=== PATIENT | female | born 1940 | race Caucasian/White ===

== ENCOUNTER 2022-05-30 08:54 | Inpatient (IN) | payer MEDICARE ==
[~2022-05-30] VITALS: Ht 157.5 cm; Wt 54.0 kg
--- NOTE | 2022-05-30 09:24 | NUR ---
Dr Jacques at the bedside for MSE.
[2022-05-30] MEDS ORDERED: MORPHINE SULFATE 4 MG/1 ML DISP.SYRIN IM ONE (09:30)
[2022-05-30] MEDS ORDERED: MORPHINE SULFATE 4 MG/1 ML DISP.SYRIN ONE (09:38)
[2022-05-30 10:59] LABS: HEMATOCRIT 31.9 % (31.2-41.9); MEAN CORPUSCULAR HEMOGLOBIN 32.4 uug (24.7-32.8); MEAN CORPUSCULAR VOLUME 93.5 fL (75.5-95.3); PLATELET COUNT (AUTO) 231 K/uL (179-408)
--- NOTE | 2022-05-30 11:32 | NUR ---
Pt states pain relief w/ Morphine, c/o pain w/ movement. Pt's sitting by bed.
[2022-05-30] MEDS ORDERED: MELATONIN (12:05)
[2022-05-30] MEDS ORDERED: PREDNISOLONE (12:05)
[2022-05-30] MEDS ORDERED: SIMVASTATIN (12:05)
[2022-05-30] MEDS ORDERED: COQ-10 (12:05)
[2022-05-30] MEDS ORDERED: VITAMIN B12 (12:05)
[2022-05-30] MEDS ORDERED: JARDIANCE (12:05)
[2022-05-30] MEDS ORDERED: ALPHAGAN (12:05)
[2022-05-30] MEDS ORDERED: CARTIA (12:05)
[2022-05-30] MEDS ORDERED: ENTACAPONE (12:05)
[2022-05-30] MEDS ORDERED: [UNRECOGNIZED DRUG - OTHER] (12:05)
[2022-05-30] MEDS ORDERED: OLME5TAB3 (12:05)
[2022-05-30] MEDS ORDERED: LEXAPRO (12:05)
[2022-05-30] MEDS ORDERED: XARELTO (12:05)
[2022-05-30] MEDS ORDERED: AREDS (12:05)
[2022-05-30] MEDS ORDERED: POTASSIUM CHLORIDE (12:05)
[2022-05-30] MEDS ORDERED: FURO20TA90 (12:05)
[2022-05-30] MEDS ORDERED: BUPROPION (12:05)
[2022-05-30] MEDS ORDERED: OMEPRAZOLE (12:05)
[2022-05-30] MEDS ORDERED: LINZESS (12:05)
[2022-05-30] MEDS ORDERED: PROLENSA (12:05)
--- NOTE | 2022-05-30 12:10 | NUR ---
Paged Dr Landry for admission.
--- NOTE | 2022-05-30 12:48 | NUR ---
Dr Jacques spoke to Dr Landry for M/S admit.
--- NOTE | 2022-05-30 15:00 | NUR ---
ADMITTED FROM HOME VIA ER AN 81 YO FEMALE WITH ADM DX SP FALL, ALERT AND VERBALLY RESPONSIVE BUT FORGETFUL. AT BEDSIDE. ROUTINE ADM ASSESSMENT DONE. NOTED LIMITED FLEXION RIGHT LE, TENDER TO TOUCH WITH BRUISING. ICE PACK APPLIED. GOOD PEDAL PULSES AND GOOD CAPILLARY REFILL. CONTINUE MS STATUS
--- NOTE | 2022-05-30 15:07 | NUR ---
Transfer pt to M/S unit via [facility].
[2022-05-30 16:16] VITALS: BP 131/65
[2022-05-30] MEDS ORDERED: [UNRECOGNIZED DRUG - CODE] PO (16:17)
[2022-05-30] MEDS ORDERED: POTA10CA43 PO (16:17)
[2022-05-30] MEDS ORDERED: OMEP20CA15 PO (16:18)
[2022-05-30] MEDS ORDERED: EMPA25TA PO (16:18)
[2022-05-30] MEDS ORDERED: SIMV-46 PO (16:18)
[2022-05-30] MEDS ORDERED: DILT120C51 PO (16:18)
[2022-05-30] MEDS ORDERED: RIVA20TA PO (16:18)
[2022-05-30] MEDS ORDERED: BRIM5DRO3 EACHEYE (16:18)
[2022-05-30] MEDS ORDERED: BROM3DRO RIGHTEYE (16:18)
[2022-05-30] MEDS ORDERED: OLME20TA13 PO (16:18)
[2022-05-30] MEDS ORDERED: PRED5DRO16 RIGHTEYE (16:18)
[2022-05-30] MEDS ORDERED: BUPR150T10 PO (16:18)
[2022-05-30] MEDS ORDERED: FURO-152 PO (16:18)
[2022-05-30] MEDS ORDERED: CYAN-51 PO (16:18)
[2022-05-30] MEDS ORDERED: ESCI20TA PO (16:18)
[2022-05-30] MEDS ORDERED: LINA145C PO (16:18)
[2022-05-30] MEDS ORDERED: MELA5TAB PO (16:20)
[2022-05-30] MEDS ORDERED: Medication Not On Formulary EA (Linaclotide (Linzess) 145 MCG) PO PRN (17:45)
[2022-05-30] MEDS ORDERED: BRIMONIDINE-P 0.1% OPHTH DROP 5 ML DROPS EACHEYE SCH (18:00)
[2022-05-30] MEDS ORDERED: ONDANSETRON 4 MG/2 ML VIAL IV PRN (18:00)
[2022-05-30] MEDS ORDERED: MAGNESIUM HYDROXIDE 30 ML LIQUID UDC PO PRN (18:00)
[2022-05-30] MEDS ORDERED: LINZESS 145 MCG PO PRN (18:15)
[2022-05-30] MEDS ORDERED: [UNRECOGNIZED DRUG - OTHER] PO PRN (18:15)
[2022-05-30] MEDS: POTASSIUM CHLORIDE 8 MEQ TAB.PRT.SR PO SCH (18:16)
[2022-05-30] MEDS: FUROSEMIDE 20 MG TABLET PO SCH (18:16)
[2022-05-30] MEDS: DILTIAZEM HCL CD 120 MG CAP.SR.24H PO SCH (18:16)
[2022-05-30] MEDS: MORPHINE SULFATE 2 MG/1 ML DISP.SYRIN IV PRN ×2 (18:16→22:33)
[2022-05-30] MEDS: BRIMONIDINE 0.2% OPHT DROP 10 ML BOTTLE EACHEYE SCH (18:17)
--- NOTE | 2022-05-30 18:30 | NUR ---
PATIENT HR 150-155, C/O PAIN RIGHT THIGH 03/06. MORPHINE PRN AND ROUTINE CARDIZEM GIVEN. PATIENT DENIES CHEST PAIN OR SOB. DR WRIGHT NOTIFIED AWAITING CALL BACK
[2022-05-30 20:00] VITALS: BP 119/75
[2022-05-30] MEDS: AMIODARONE HCL IV 450 MG in IV DEXTROSE 5% 250 ML IV PRN (20:44)
[2022-05-30] MEDS ORDERED: [UNRECOGNIZED DRUG - OTHER] PO SCH (21:00)
[2022-05-30] MEDS ORDERED: CARBIDOPA PO SCH (21:00)
[2022-05-30] MEDS ORDERED: LEVODOPA PO SCH (21:00)
[2022-05-30] MEDS ORDERED: Medication Not On Formulary EA (Melatonin 5 MG) PO SCH (21:00)
[2022-05-30] MEDS ORDERED: ENTACAPONE PO SCH (21:00)
[2022-05-30 22:00] VITALS: BP 121/109
[2022-05-30] MEDS: SIMVASTATIN 20 MG TABLET PO SCH (22:04)
[2022-05-30] MEDS: DOCUSATE SODIUM 100 MG CAPSULE PO SCH (22:05)
[2022-05-30] MEDS: MELATONIN 3 MG TABLET PO SCH (22:05)
[2022-05-31] VITALS (7 sets, daily range): BP systolic 110–135; BP diastolic 46–67
[2022-05-31] MEDS: MORPHINE SULFATE 2 MG/1 ML DISP.SYRIN IV PRN ×2 (02:55→22:20)
--- NOTE | 2022-05-31 04:40 | NUR ---
Patient rec'd at 1900 on MAEGAN status. Chronic Specialist at bedside. Heart rate 150's sustained. Order placed by MD for Amiodorone DRip, No bolus ordered. Pt lying in bed family at bedside Pt oriented to person does not where she is. Reoriented to place and time. Assessment complete Amiodorone drip obtained from Pharmacy and started.
--- NOTE | 2022-05-31 04:47 | NUR ---
Stat CT of right hip and thigh ordered due to hematoma from fall at home. See assessment. Pt taken foe CT and returned to floor. Amiodorone drip commenced. Heart rate 130's to 150's. Drip running at 1mg/hr for [address] results posted Call placed to DR Cheng.who ispoke with the family via telephome re results. Family left for the night.
[2022-05-31] MEDS: AMIODARONE HCL IV 450 MG in IV DEXTROSE 5% 250 ML IV PRN (05:29)
[2022-05-31] MEDS: PANTOPRAZOLE SODIUM 40 MG TABLET.DR PO SCH (06:52)
[2022-05-31 07:41] LABS: HEMATOCRIT 26.3 % (31.2-41.9); MEAN CORPUSCULAR HEMOGLOBIN 32.8 uug (24.7-32.8); MEAN CORPUSCULAR VOLUME 94.9 fL (75.5-95.3); PLATELET COUNT (AUTO) 202 K/uL (179-408)
[2022-05-31 07:45] LABS: BILIRUBIN,TOTAL 0.5 mg/dL (0.2-1.0); CREATININE 1.2 mg/dL (0.6-1.3); MAGNESIUM 2.3 mg/dL (1.8-2.4); PHOSPHOROUS 5.3 mg/dL (2.5-4.9); POTASSIUM 3.9 mmol/L (3.5-5.1); TOTAL PROTEIN, SERUM 5.3 g/dL (6.4-8.2)
--- NOTE | 2022-05-31 07:52 | NUR ---
Awake, alert, oriented to name, pleasant, on moderate high back rest. Denies pain. Amiodarone drip infusing at 0.5 mg at 16.6 ml/hr. Tele SR 75. Room air 95%
[2022-05-31] MEDS ORDERED: Medication Not On Formulary EA (Escitalopram Oxalate (Lexapro) 20 MG) PO SCH (09:00)
[2022-05-31] MEDS ORDERED: DILTIAZEM HCL CD 120 MG CAP.SR.24H PO SCH (09:00)
[2022-05-31] MEDS ORDERED: Medication Not On Formulary EA (Empagliflozin (Jardiance) 25 MG) PO SCH (09:00)
[2022-05-31] MEDS: BRIMONIDINE 0.2% OPHT DROP 10 ML BOTTLE EACHEYE SCH ×2 (09:10→17:17)
[2022-05-31] MEDS: DILTIAZEM HCL CD 120 MG CAP.SR.24H PO SCH (09:10)
[2022-05-31] MEDS: buPROPion SR 150 MG TABLET.SA PO SCH (09:11)
[2022-05-31] MEDS: FUROSEMIDE 20 MG TABLET PO SCH ×3 (09:11→17:17)
[2022-05-31] MEDS: POTASSIUM CHLORIDE 8 MEQ TAB.PRT.SR PO SCH ×2 (09:11→17:00)
[2022-05-31] MEDS: ESCITALOPRAM OXALATE 10 MG TABLET PO SCH (09:11)
[2022-05-31] MEDS: CYANOCOBALAMIN 1,000 MCG TABLET PO SCH (09:11)
[2022-05-31] MEDS: prednisoLONE ACET 1% OPHT DROP 5 ML BOTTLE RIGHTEYE SCH (09:12)
--- NOTE | 2022-05-31 10:44 | NUR ---
WOUND CARE CONSULT: PT HAVING PROCEDURE AT THIS TIME. REVIEWED CHART, NURSING DOCUMENTATION AND PHOTO WHICH INDICATES RT ELBOW SKIN TEAR, PRESENT ON ADMISSION. RECOMMENDATIONS MADE FOR SKIN PROTECTION AND WOUND CARE. DISCUSSED WITH NURSING STAFF. CURRENT OLINDA SCORE IS 17. MD IN AGREEMENT WITH PLAN OF CARE. Addendum: 05/31/22 at 1106 by MAIDA BHAT RN PT SEEN FOR SKIN ASSESSMENT AND NOTED TO HAVE FIRM AREA OF DISCOLORATION TO RT THIGH AND FULL THICKNESS SKIN TEAR TO RT ELBOW, PRESENT ON ADMISSION. DR STORM FELDMAN CALLED FOR SURGICAL CONSULT. DISCUSSED WITH NURSING STAFF. MD IN AGREEMENT WITH PLAN OF CARE.
--- NOTE | 2022-05-31 11:30 | NUR ---
PT eval done, assisted out of bed to the bathroom,unsteady x 2 assist. Had BM.
[2022-05-31] MEDS ORDERED: REMEDY ESSENTIAL ZINC PASTE 113 GM TOP PRN (12:00)
[2022-05-31] MEDS: ACETAMINOPHEN 325 MG TABLET PO PRN (13:23)
--- NOTE | 2022-05-31 13:23 | NUR ---
Reports of neck pain, requested for Tylenol po given
[2022-05-31 15:00] LABS: THYROID STIMULATING HORMONE 2.972 mIU/mL (0.358-3.740)
--- NOTE | 2022-05-31 15:30 | NUR ---
Customer Acquisition Specialist seen patient, informed of Tele SR, Amiodarone drip discontinued. Amiodarone po started.
[2022-05-31] MEDS: AMIODARONE HCL 200 MG TABLET PO SCH (15:31)
--- NOTE | 2022-05-31 18:02 | NUR ---
Family at bedside. Encouraged po intake. Refused Lasix/K po.
[2022-05-31] MEDS ORDERED: HOME MED MISCELLANEOUS XX SCH (19:30)
[2022-05-31] MEDS ORDERED: FLUTICASONE/SALMETEROL 100/50 1 INH DISK.W.DEV INH SCH (21:00)
[2022-05-31] MEDS: CARBIDOPA PO SCH (21:00)
[2022-05-31] MEDS: ENTACAPONE PO SCH (21:00)
[2022-05-31] MEDS: MELATONIN 3 MG TABLET PO SCH (21:00)
[2022-05-31] MEDS: LEVODOPA PO SCH (21:00)
[2022-05-31] MEDS: FLUTICASONE/VILANTEROL 1 EACH BLST.W.DEV INH SCH (21:00)
[2022-05-31] MEDS: DOCUSATE SODIUM 100 MG CAPSULE PO SCH (21:00)
[2022-05-31] MEDS: SIMVASTATIN 20 MG TABLET PO SCH (21:00)
[2022-05-31] MEDS: [UNRECOGNIZED DRUG - OTHER] PO SCH (21:00)
[2022-05-31] MEDS: ALBUTEROL SULFATE 1.25 MG/3 ML NEBU NEB PRN (22:29)
[2022-06-01] VITALS (11 sets, daily range): BP systolic 91–151; BP diastolic 38–69
[2022-06-01] MEDS: TEMAZEPAM 15 MG CAPSULE PO PRN ×2 (02:22→22:33)
[2022-06-01] MEDS: MORPHINE SULFATE 2 MG/1 ML DISP.SYRIN IV PRN ×2 (03:18→07:38)
--- NOTE | 2022-06-01 06:00 | NUR ---
[id number]--RECEIVED PT WITH STABLE VS. PT HAS BEEN CONFUSED THROUGHOUT THE NIGHT. PT HAS BEEN AFEBRILE. IV I/P VIA LEFT ARM. PT HAS BEEN A/OX3 WHEN FAMILY WAS AT BESIDE(PT'S AND DAUGHTERS)BUT LATER PT BECAME MORE CONFUSED-ABOUT LOCATION AND EVENTS BUT ANSWERS TO HER NAME AND FOLLOWS SIMPLE COMMDS. PT HAS BEEN INCONT. PT VOIDING WELL. AM CARE GIVEN. PT C/O GEN.PAIN EARLIER AND REQUESTED MORPHINE-2MG GIVEN/IVP. PT STATES RELIEF AFTER MED. PT ALSO MED LATER IN SHIFT FOR S/S OF PAIN AT 0300. PT SLEEPING OFF AND ON AFTER MED WAS GIVEN BUT PT HAS BEEN AGITATED AT TIMES. BOAR SANON CONTACTED REGARDING PT'S HR INCREASING FROM 120'S-140'S. GEN. COND. HAS BEEN STABLE BUT GUARDED. PT ENDORSED TO SHYAM DRAPER RN
[2022-06-01] MEDS: PANTOPRAZOLE SODIUM 40 MG TABLET.DR PO SCH (06:28)
[2022-06-01] MEDS: AMIODARONE HCL 200 MG TABLET PO SCH (06:28)
[2022-06-01 07:19] LABS: HEMATOCRIT 24.4 % (31.2-41.9); MEAN CORPUSCULAR HEMOGLOBIN 32.5 uug (24.7-32.8); MEAN CORPUSCULAR VOLUME 93.7 fL (75.5-95.3); PLATELET COUNT (AUTO) 204 K/uL (179-408)
--- NOTE | 2022-06-01 07:22 | NUR ---
patient received laying in bed, very restless, awake, oriented to self, currently afib.
[2022-06-01] MEDS: DILTIAZEM HCL CD 120 MG CAP.SR.24H PO SCH (07:41)
[2022-06-01 07:58] LABS: MAGNESIUM 2.4 mg/dL (1.8-2.4); PHOSPHOROUS 3.7 mg/dL (2.5-4.9); POTASSIUM 3.6 mmol/L (3.5-5.1)
--- NOTE | 2022-06-01 07:59 | NUR ---
Dr Stokes is paged regarding patient current condition of being in Afib with rate of 130s, waiting for response.
--- NOTE | 2022-06-01 08:11 | NUR ---
order received for amio bolus and then drip, order noted.
[2022-06-01] MEDS ORDERED: AMIODARONE HCL IV 450 MG in IV DEXTROSE 5% 250 ML IV PRN (08:30)
[2022-06-01] MEDS: LORAZEPAM 2 MG/1 ML VIAL IV PRN (08:41)
--- NOTE | 2022-06-01 08:52 | NUR ---
patient noted with constant severe jerky movements, rapid response was called, patient assessed, called dr chatman, with order to give patient another dose of Ativan.
[2022-06-01] MEDS: [UNRECOGNIZED DRUG - OTHER] PO SCH ×5 (09:00→20:29)
[2022-06-01] MEDS ORDERED: LORAZEPAM 2 MG/1 ML VIAL IV ONE (09:00)
[2022-06-01] MEDS: LEVODOPA PO SCH ×5 (09:00→20:29)
[2022-06-01] MEDS ORDERED: AMIODARONE HCL IV 150 MG in IV DEXTROSE 5% 100 ML IV ONE ×4 (09:00)
[2022-06-01] MEDS: JARDIANCE 25 MG PO SCH (09:00)
[2022-06-01] MEDS: CARBIDOPA PO SCH ×5 (09:00→20:29)
[2022-06-01] MEDS: [UNRECOGNIZED DRUG - OTHER] PO SCH (09:00)
[2022-06-01] MEDS: ESCITALOPRAM OXALATE 10 MG TABLET PO SCH (09:00)
[2022-06-01] MEDS: POTASSIUM CHLORIDE 8 MEQ TAB.PRT.SR PO SCH ×2 (09:00→16:24)
[2022-06-01] MEDS: ENTACAPONE PO SCH ×5 (09:00→20:29)
[2022-06-01] MEDS: CYANOCOBALAMIN 1,000 MCG TABLET PO SCH (09:00)
--- NOTE | 2022-06-01 09:00 | NUR ---
Amiodarone not administered patient systolic blood pressure dropped to low 80s. Dr Stokes made aware.
--- NOTE | 2022-06-01 09:05 | NUR ---
another dose of ativan administered as ordered, continue to monitor for jerking movements, still noted with jerky movements at this time.
[2022-06-01] MEDS: BRIMONIDINE 0.2% OPHT DROP 10 ML BOTTLE EACHEYE SCH ×2 (10:14→16:24)
[2022-06-01] MEDS ORDERED: IV NORMAL SALINE 500 ML BAG IV ONE (10:15)
[2022-06-01] MEDS: FLUTICASONE/VILANTEROL 1 EACH BLST.W.DEV INH SCH (10:15)
[2022-06-01] MEDS: prednisoLONE ACET 1% OPHT DROP 5 ML BOTTLE RIGHTEYE SCH (10:17)
[2022-06-01] MEDS: buPROPion SR 150 MG TABLET.SA PO SCH (10:17)
--- NOTE | 2022-06-01 10:26 | NUR ---
patient systolic blood pressure was dropped to 80s, dr chatman examined patient at bedside, ordered 500ml of bolus x1, administered, current vitals are blood pressure 141/62, pulse 99, respirations are 22, o2 sat at room air 94%, patient is resting in bed.
--- NOTE | 2022-06-01 11:21 | NUR ---
Patient came back from CT, sleeping and resting in bed, no jerky movements noted at this time, family at bedside, talked to dr chatman in person at patient bedside.
[2022-06-01] MEDS: FUROSEMIDE 20 MG TABLET PO SCH ×2 (12:19→16:24)
--- NOTE | 2022-06-01 12:38 | NUR ---
patient converted to sinus rhythm
--- NOTE | 2022-06-01 16:27 | NUR ---
patient was awake for few minutes, able to follow commands, tolerated po medications, no acute distress noted, saturating at 95% at 2 liter of NC.
--- NOTE | 2022-06-01 18:56 | NUR ---
Patient is examined by Manager Foreign Dr Stokes at bedside. patient is intermittently awake, noted with episodes of mild restlessness in bed and goes back to sleep, kept safe, and clean. spoke to family in length, answered appropriate questions at bedside.
[2022-06-01] MEDS ORDERED: IV NORMAL SALINE 250 ML IV PRN (19:00)
[2022-06-01] MEDS: DOCUSATE SODIUM 100 MG CAPSULE PO SCH (20:27)
[2022-06-01] MEDS: MELATONIN 3 MG TABLET PO SCH (20:27)
[2022-06-01] MEDS: SIMVASTATIN 20 MG TABLET PO SCH (20:28)
[2022-06-01] MEDS: METOPROLOL TARTRATE 25 MG TABLET PO SCH (21:00)
[2022-06-02] VITALS (7 sets, daily range): BP systolic 102–132; BP diastolic 45–96
[2022-06-02] MEDS: LORAZEPAM 2 MG/1 ML VIAL IV PRN (02:32)
[2022-06-02] MEDS: TRAMADOL HCL 50 MG TABLET PO PRN (05:11)
[2022-06-02 06:21] LABS: HEMATOCRIT 23.7 % (31.2-41.9); MEAN CORPUSCULAR HEMOGLOBIN 32.7 uug (24.7-32.8); MEAN CORPUSCULAR VOLUME 95.8 fL (75.5-95.3); PLATELET COUNT (AUTO) 200 K/uL (179-408)
[2022-06-02] MEDS: PANTOPRAZOLE SODIUM 40 MG TABLET.DR PO SCH (06:22)
--- NOTE | 2022-06-02 06:52 | NUR ---
Patient monitored throughout the night BP stable Cardiac rhythm sinus /Afib flutter However sinus for greater part of night. Pt also slept for approximately 3 hours after restoril also after administration of Ativan. aTramadol given for pain at 0500. with good effect Pericare mouth care given . Moderate urine output noted
[2022-06-02 07:29] LABS: BILIRUBIN,TOTAL 0.6 mg/dL (0.2-1.0); CREATININE 0.7 mg/dL (0.6-1.3); MAGNESIUM 2.6 mg/dL (1.8-2.4); PHOSPHOROUS 2.9 mg/dL (2.5-4.9); POTASSIUM 3.3 mmol/L (3.5-5.1); TOTAL PROTEIN, SERUM 5.6 g/dL (6.4-8.2)
[2022-06-02] MEDS: ESCITALOPRAM OXALATE 10 MG TABLET PO SCH (08:22)
[2022-06-02] MEDS: CYANOCOBALAMIN 1,000 MCG TABLET PO SCH (08:23)
[2022-06-02] MEDS: buPROPion SR 150 MG TABLET.SA PO SCH (08:23)
[2022-06-02] MEDS: POTASSIUM CHLORIDE 8 MEQ TAB.PRT.SR PO SCH ×2 (08:24→16:36)
[2022-06-02] MEDS: prednisoLONE ACET 1% OPHT DROP 5 ML BOTTLE RIGHTEYE SCH (08:25)
[2022-06-02] MEDS: BRIMONIDINE 0.2% OPHT DROP 10 ML BOTTLE EACHEYE SCH ×2 (08:25→17:37)
[2022-06-02] MEDS: FLUTICASONE/VILANTEROL 1 EACH BLST.W.DEV INH SCH (08:26)
[2022-06-02] MEDS: METOPROLOL TARTRATE 25 MG TABLET PO SCH ×2 (08:26→21:00)
[2022-06-02] MEDS: ACETAMINOPHEN 325 MG TABLET PO PRN (08:26)
[2022-06-02] MEDS: [UNRECOGNIZED DRUG - OTHER] PO SCH ×4 (08:28→21:08)
[2022-06-02] MEDS: CARBIDOPA PO SCH ×4 (08:28→21:08)
[2022-06-02] MEDS: LEVODOPA PO SCH ×4 (08:28→21:08)
[2022-06-02] MEDS: ENTACAPONE PO SCH ×4 (08:28→21:08)
[2022-06-02] MEDS: [UNRECOGNIZED DRUG - OTHER] PO SCH (08:29)
[2022-06-02] MEDS: JARDIANCE 25 MG PO SCH (08:29)
[2022-06-02] MEDS ORDERED: AMIODARONE HCL 200 MG TABLET PO SCH (09:00)
[2022-06-02] MEDS: POTASSIUM CHLORIDE 50 ML IV SCH ×2 (10:01→11:58)
[2022-06-02] MEDS: RIVAROXABAN 15 MG TABLET PO SCH (12:39)
--- NOTE | 2022-06-02 17:00 | NUR ---
Pt. was monitored through out the shift. Wound care provided on right elbow. Family noted at pt. bed side through out the shift. Pt. noted to have productive cough and reported to and received order for Robitussin. Chest X-ray just done.
[2022-06-02] MEDS: MELATONIN 3 MG TABLET PO SCH (21:08)
[2022-06-02] MEDS: DOCUSATE SODIUM 100 MG CAPSULE PO SCH (21:08)
[2022-06-02] MEDS: SIMVASTATIN 20 MG TABLET PO SCH (21:08)
[2022-06-03] VITALS: BP 110/52
[2022-06-03 04:00] VITALS: BP 118/50
[2022-06-03] MEDS: PANTOPRAZOLE SODIUM 40 MG TABLET.DR PO SCH (06:17)
[2022-06-03 06:20] LABS: HEMATOCRIT 23.5 % (31.2-41.9); MEAN CORPUSCULAR HEMOGLOBIN 32.3 uug (24.7-32.8); PLATELET COUNT (AUTO) 241 K/uL (179-408)
[2022-06-03 06:39] LABS: CREATININE 0.7 mg/dL (0.6-1.3); MAGNESIUM 2.5 mg/dL (1.8-2.4); PHOSPHOROUS 3.6 mg/dL (2.5-4.9); POTASSIUM 4.1 mmol/L (3.5-5.1)
--- NOTE | 2022-06-03 06:48 | NUR ---
Pt with slight improvement. Slept for long periods Metoprolol for 2100 not given pt was bradycardic 50's. Aggitated at times only when receiving care. Stable BP pending swallow eval. midline to boone arm patent and intact.
[2022-06-03 07:34] VITALS: BP 127/78
[2022-06-03] MEDS: CYANOCOBALAMIN 1,000 MCG TABLET PO SCH (08:16)
[2022-06-03] MEDS: buPROPion SR 150 MG TABLET.SA PO SCH (08:18)
[2022-06-03] MEDS: POTASSIUM CHLORIDE 8 MEQ TAB.PRT.SR PO SCH ×2 (08:18→16:47)
[2022-06-03] MEDS: BRIMONIDINE 0.2% OPHT DROP 10 ML BOTTLE EACHEYE SCH ×2 (08:19→16:47)
[2022-06-03] MEDS: ESCITALOPRAM OXALATE 10 MG TABLET PO SCH (08:19)
[2022-06-03] MEDS: prednisoLONE ACET 1% OPHT DROP 5 ML BOTTLE RIGHTEYE SCH (08:19)
[2022-06-03] MEDS: LEVODOPA PO SCH ×4 (08:20→21:39)
[2022-06-03] MEDS: [UNRECOGNIZED DRUG - OTHER] PO SCH ×4 (08:20→21:39)
[2022-06-03] MEDS: [UNRECOGNIZED DRUG - OTHER] PO SCH (08:20)
[2022-06-03] MEDS: JARDIANCE 25 MG PO SCH (08:20)
[2022-06-03] MEDS: ENTACAPONE PO SCH ×4 (08:20→21:39)
[2022-06-03] MEDS: CARBIDOPA PO SCH ×4 (08:20→21:39)
[2022-06-03] MEDS: FLUTICASONE/VILANTEROL 1 EACH BLST.W.DEV INH SCH (08:21)
[2022-06-03] MEDS: GUAIFENESIN/DEXTROMETHORPHAN 5 ML UDC PO PRN ×2 (08:31→17:47)
[2022-06-03] MEDS: ACETAMINOPHEN 325 MG TABLET PO PRN (08:32)
[2022-06-03] MEDS ORDERED: PIPERACILLIN SODIUM/TAZOBACTAM 3.375 G in IV DEXTROSE 5% 50 ML IV ONE (09:00)
[2022-06-03] MEDS: METOPROLOL TARTRATE 25 MG TABLET PO SCH (09:02)
[2022-06-03 11:34] VITALS: BP 117/86
[2022-06-03] MEDS: AMIODARONE HCL 200 MG TABLET PO SCH ×2 (11:43→21:39)
[2022-06-03] MEDS ORDERED: PIPERACILLIN SODIUM/TAZOBACTAM 3.375 G in IV DEXTROSE 5% 50 ML IV SCH (14:00)
[2022-06-03 16:00] VITALS: BP 139/56
[2022-06-03] MEDS: PIPERACILLIN SODIUM/TAZOBACTAM 3.375 G in IV DEXTROSE 5% 100 ML IV SCH (16:36)
[2022-06-03 16:59] LABS: *BILIRUBIN,URIN NEGATIVE (NEGATIVE); *BLOOD, URINE NEGATIVE (NEGATIVE); *CLARITY,URINE CLEAR (CLEAR); *COLOR,URINE YELLOW (YELLOW); *KETONES,URINE 1+ (NEGATIVE); *UROBILINOGEN,URINE 0.2 E.U./dl (NORMAL); LEUKOCYTE ESTERASE ,URINE 1+ (NEGATIVE); NITRITE, URINE NEGATIVE (NEGATIVE); PH,URINE 5.5 (5.0-8.0); UGLUCOSE 2+ (NEGATIVE)
[2022-06-03] MEDS: RIVAROXABAN 15 MG TABLET PO SCH (17:05)
--- NOTE | 2022-06-03 17:15 | NUR ---
Noted pt. having Rapid A-Fib at 110 and noted asymptomatic. Nonpharmacological intervention applied by decreasing stimuli and keeping the room quite. Will keep monitoring the resident.
[2022-06-03] MEDS: TRAMADOL HCL 50 MG TABLET PO PRN (17:47)
--- NOTE | 2022-06-03 18:21 | NUR ---
Noted nonpharmacological intervention to be effective and HR to 70.
[2022-06-03 20:00] VITALS: BP 139/56
[2022-06-03 20:56] LABS: BACTERIA,URINE MA /HPF (NONE SEEN); RBC,URINE 0-3 /HPF (0-3); SQUAMOUS EPITHELIAL CELL,UR MANY /HPF (NONE SEEN)
[2022-06-03] MEDS: DOCUSATE SODIUM 100 MG CAPSULE PO SCH (21:38)
[2022-06-03] MEDS: SIMVASTATIN 20 MG TABLET PO SCH (21:38)
[2022-06-03] MEDS: MELATONIN 3 MG TABLET PO SCH (21:38)
[2022-06-04] MEDS: TRAMADOL HCL 50 MG TABLET PO PRN ×2 (00:11→11:43)
[2022-06-04] MEDS: TEMAZEPAM 15 MG CAPSULE PO PRN (00:16)
[2022-06-04] MEDS: PIPERACILLIN SODIUM/TAZOBACTAM 3.375 G in IV DEXTROSE 5% 100 ML IV SCH ×3 (00:22→17:56)
[2022-06-04] MEDS: PIPERACILLIN SODIUM/TAZOBACTAM 3.375 G in IV DEXTROSE 5% 50 ML IV SCH (02:00)
[2022-06-04 05:19] VITALS: BP 129/96
[2022-06-04] MEDS: ACETAMINOPHEN 325 MG TABLET PO PRN (05:46)
[2022-06-04] MEDS: PANTOPRAZOLE SODIUM 40 MG TABLET.DR PO SCH (06:02)
--- NOTE | 2022-06-04 06:15 | NUR ---
Pt improving, Hacky cough noted to be decreasing. Converts to flutter when aggitated. Medicated for pain prn. with good effect. PO encouraged.
--- NOTE | 2022-06-04 06:56 | NUR ---
pt had 3 bowel movement today.
[2022-06-04 07:40] LABS: HEMATOCRIT 24.9 % (31.2-41.9); MEAN CORPUSCULAR HEMOGLOBIN 32.3 uug (24.7-32.8); MEAN CORPUSCULAR VOLUME 96.4 fL (75.5-95.3); PLATELET COUNT (AUTO) 308 K/uL (179-408)
[2022-06-04 07:47] LABS: CREATININE 0.8 mg/dL (0.6-1.3); MAGNESIUM 2.4 mg/dL (1.8-2.4); PHOSPHOROUS 3.2 mg/dL (2.5-4.9); POTASSIUM 3.7 mmol/L (3.5-5.1)
[2022-06-04] MEDS: FLUTICASONE/VILANTEROL 1 EACH BLST.W.DEV INH SCH (08:07)
[2022-06-04] MEDS: prednisoLONE ACET 1% OPHT DROP 5 ML BOTTLE RIGHTEYE SCH (08:08)
[2022-06-04] MEDS: GUAIFENESIN/DEXTROMETHORPHAN 5 ML UDC PO PRN (08:08)
[2022-06-04] MEDS: buPROPion SR 150 MG TABLET.SA PO SCH (08:08)
[2022-06-04] MEDS: POTASSIUM CHLORIDE 8 MEQ TAB.PRT.SR PO SCH ×2 (08:08→17:51)
[2022-06-04] MEDS: JARDIANCE 25 MG PO SCH (08:09)
[2022-06-04] MEDS: ENTACAPONE PO SCH ×4 (08:09→21:15)
[2022-06-04] MEDS: CARBIDOPA PO SCH ×4 (08:09→21:15)
[2022-06-04] MEDS: LEVODOPA PO SCH ×4 (08:09→21:15)
[2022-06-04] MEDS: [UNRECOGNIZED DRUG - OTHER] PO SCH (08:09)
[2022-06-04] MEDS: [UNRECOGNIZED DRUG - OTHER] PO SCH ×4 (08:09→21:15)
[2022-06-04] MEDS: CYANOCOBALAMIN 1,000 MCG TABLET PO SCH (08:10)
[2022-06-04] MEDS: BRIMONIDINE 0.2% OPHT DROP 10 ML BOTTLE EACHEYE SCH ×2 (08:10→17:54)
[2022-06-04] MEDS ORDERED: AMIODARONE HCL 200 MG TABLET PO SCH (09:00)
[2022-06-04 11:34] VITALS: BP 123/69
--- NOTE | 2022-06-04 12:38 | NUR ---
WOUND CARE CONSULT: RECEIVED 2ND CONSULT FOR RT ELBOW SKIN TEAR WHICH IS FULL THICKNESS, PRESENT ON ADMISSION. NO SIGN OF INFECTION NOTED. DR STORM FELDMAN CALLED AGAIN FOR SURGICAL CONSULT. IN AGREEMENT WITH PLAN OF CARE.
--- NOTE | 2022-06-04 12:42 | NUR ---
Notified Dr. Mcconnell about pt. having HR 100-120 with atrial flutter and pt. being agitated. Per Jayesh will talk with the hospitalist. Will continue monitoring the patient. Vitals note BP 123/69 RR 19 Temp 98.0
--- NOTE | 2022-06-04 15:40 | NUR ---
Notified Antonioian about HR is more consistence at 120's and patient become getting more exhausted and agitated. Notified family not stimulate patient.
[2022-06-04 16:00] VITALS: BP 145/89
--- NOTE | 2022-06-04 16:30 | NUR ---
Dr. Mcconnell replied and new order for Amiodarone drip.
[2022-06-04] MEDS ORDERED: AMIODARONE HCL IV 150 MG in IV DEXTROSE 5% 100 ML IV ONE (17:00)
[2022-06-04] MEDS: RIVAROXABAN 15 MG TABLET PO SCH (17:52)
--- NOTE | 2022-06-04 17:56 | NUR ---
Unable to give Zosyn IV due to prioritizing Amiodarone drip and pt. having 1 IV line. Notified pharmacy and will change time.
[2022-06-04] MEDS: AMIODARONE HCL IV 450 MG in IV DEXTROSE 5% 250 ML IV PRN (18:41)
--- NOTE | 2022-06-04 20:09 | NUR ---
When family is not at bedside pt is more quiet and calm. Current HR @ 90's decreased stimulation effective. Report given to oncoming shift.
[2022-06-04] MEDS: DOCUSATE SODIUM 100 MG CAPSULE PO SCH (21:15)
[2022-06-04] MEDS: MELATONIN 3 MG TABLET PO SCH (21:15)
[2022-06-04] MEDS: SIMVASTATIN 20 MG TABLET PO SCH (21:18)
[2022-06-05] VITALS: BP 123/53
[2022-06-05] MEDS: PIPERACILLIN SODIUM/TAZOBACTAM 3.375 G in IV DEXTROSE 5% 50 ML IV SCH ×4 (02:00→21:00)
[2022-06-05] MEDS: AMIODARONE HCL IV 450 MG in IV DEXTROSE 5% 250 ML IV PRN ×2 (03:17→17:23)
[2022-06-05 04:00] VITALS: BP 140/57
[2022-06-05] MEDS: PANTOPRAZOLE SODIUM 40 MG TABLET.DR PO SCH (06:11)
--- NOTE | 2022-06-05 06:24 | NUR ---
SHIFT NOTE: RECEIVED REPORT FROM EVENING NURSE PAPITO PT IS ALERT AND ORIENTED X1 TO 2 PATIENT HAS LT UPPER ARM MIDLINE PT TOLERATING AMIODARONE FIRST AT 1MG/MIN NOW 0.5MG PER MINUTE STARTING AT 0045 PT TOLERATING WELL NO SIGNS OF ADVERSE REACTION NOTED VS ARE TEMP 98.4,PULSE 77, PULSE 0X 96 % ON 2L NC,,RESPIRATION 17, AND B/P 140/57. WILL ENDORSE TO AM NURSE. FALL AND SAFETY PRECAUTION MAINTAIN THROUGHOUT THE SHIFT.
[2022-06-05 06:41] LABS: HEMATOCRIT 24.5 % (31.2-41.9); MEAN CORPUSCULAR HEMOGLOBIN 32.5 uug (24.7-32.8); MEAN CORPUSCULAR VOLUME 95.8 fL (75.5-95.3); PLATELET COUNT (AUTO) 300 K/uL (179-408)
[2022-06-05 06:57] LABS: CREATININE 0.7 mg/dL (0.6-1.3); POTASSIUM 3.7 mmol/L (3.5-5.1)
[2022-06-05 07:45] VITALS: BP 117/76
[2022-06-05] MEDS ORDERED: PIPERACILLIN SODIUM/TAZOBACTAM 3.375 G in IV DEXTROSE 5% 100 ML IV SCH (08:00)
[2022-06-05] MEDS: BRIMONIDINE 0.2% OPHT DROP 10 ML BOTTLE EACHEYE SCH ×2 (08:49→17:27)
[2022-06-05] MEDS: POTASSIUM CHLORIDE 8 MEQ TAB.PRT.SR PO SCH ×2 (08:50→17:26)
[2022-06-05] MEDS: JARDIANCE 25 MG PO SCH (08:50)
[2022-06-05] MEDS: CYANOCOBALAMIN 1,000 MCG TABLET PO SCH (08:50)
[2022-06-05] MEDS: FLUTICASONE/VILANTEROL 1 EACH BLST.W.DEV INH SCH (08:50)
[2022-06-05] MEDS: [UNRECOGNIZED DRUG - OTHER] PO SCH (08:50)
[2022-06-05] MEDS: buPROPion SR 150 MG TABLET.SA PO SCH (08:51)
[2022-06-05] MEDS: prednisoLONE ACET 1% OPHT DROP 5 ML BOTTLE RIGHTEYE SCH (08:51)
[2022-06-05] MEDS: [UNRECOGNIZED DRUG - OTHER] PO SCH ×4 (10:13→21:00)
[2022-06-05] MEDS: ENTACAPONE PO SCH ×4 (10:13→21:00)
[2022-06-05] MEDS: LEVODOPA PO SCH ×4 (10:13→21:00)
[2022-06-05] MEDS: CARBIDOPA PO SCH ×4 (10:13→21:00)
[2022-06-05 11:33] VITALS: BP 106/61
[2022-06-05 16:00] VITALS: BP 123/71
[2022-06-05] MEDS ORDERED: TEMAZEPAM 7.5 MG CAPSULE PO PRN (17:15)
[2022-06-05] MEDS: RIVAROXABAN 15 MG TABLET PO SCH (17:27)
[2022-06-05] MEDS: DOCUSATE SODIUM 100 MG CAPSULE PO SCH (21:00)
[2022-06-05] MEDS: MELATONIN 3 MG TABLET PO SCH (21:00)
[2022-06-05] MEDS: SIMVASTATIN 20 MG TABLET PO SCH (21:00)
[2022-06-06] MEDS: PIPERACILLIN SODIUM/TAZOBACTAM 3.375 G in IV DEXTROSE 5% 50 ML IV SCH ×2 (02:19→03:00)
[2022-06-06] MEDS: PANTOPRAZOLE SODIUM 40 MG TABLET.DR PO SCH (06:24)
[2022-06-06 07:51] VITALS: BP 134/56
[2022-06-06] MEDS: BRIMONIDINE 0.2% OPHT DROP 10 ML BOTTLE EACHEYE SCH ×2 (09:16→16:35)
[2022-06-06] MEDS: POTASSIUM CHLORIDE 8 MEQ TAB.PRT.SR PO SCH ×2 (09:16→16:35)
[2022-06-06] MEDS: buPROPion SR 150 MG TABLET.SA PO SCH (09:17)
[2022-06-06] MEDS: JARDIANCE 25 MG PO SCH (09:17)
[2022-06-06] MEDS: [UNRECOGNIZED DRUG - OTHER] PO SCH (09:17)
[2022-06-06] MEDS: CYANOCOBALAMIN 1,000 MCG TABLET PO SCH (09:17)
[2022-06-06] MEDS: CARBIDOPA PO SCH ×4 (09:18→21:43)
[2022-06-06] MEDS: prednisoLONE ACET 1% OPHT DROP 5 ML BOTTLE RIGHTEYE SCH (09:18)
[2022-06-06] MEDS: [UNRECOGNIZED DRUG - OTHER] PO SCH ×4 (09:18→21:43)
[2022-06-06] MEDS: LEVODOPA PO SCH ×4 (09:18→21:43)
[2022-06-06] MEDS: ENTACAPONE PO SCH ×4 (09:18→21:43)
[2022-06-06] MEDS: FLUTICASONE/VILANTEROL 1 EACH BLST.W.DEV INH SCH (09:19)
[2022-06-06] MEDS: TRAMADOL HCL 50 MG TABLET PO PRN (09:24)
[2022-06-06] MEDS: AMIODARONE HCL 200 MG TABLET PO SCH ×2 (09:25→21:40)
[2022-06-06] MEDS: PIPERACILLIN SODIUM/TAZOBACTAM 3.375 G in IV DEXTROSE 5% 100 ML IV SCH ×2 (09:26→17:40)
[2022-06-06 11:39] VITALS: BP 113/60
[2022-06-06 16:15] VITALS: BP 132/72
[2022-06-06] MEDS: RIVAROXABAN 15 MG TABLET PO SCH (16:36)
[2022-06-06 20:00] VITALS: BP 112/56
[2022-06-06] MEDS: DOCUSATE SODIUM 100 MG CAPSULE PO SCH (21:40)
[2022-06-06] MEDS: MELATONIN 3 MG TABLET PO SCH (21:40)
[2022-06-06] MEDS: SIMVASTATIN 20 MG TABLET PO SCH (21:43)
[2022-06-07] VITALS: BP 113/59
[2022-06-07] MEDS: TEMAZEPAM 15 MG CAPSULE PO PRN (02:15)
[2022-06-07] MEDS: PIPERACILLIN SODIUM/TAZOBACTAM 3.375 G in IV DEXTROSE 5% 100 ML IV SCH (02:16)
[2022-06-07 04:00] VITALS: BP 104/49
[2022-06-07] MEDS: PANTOPRAZOLE SODIUM 40 MG TABLET.DR PO SCH (06:10)
--- NOTE | 2022-06-07 07:40 | NUR ---
Sleeping, appears comfortable, on high back rest. O2 at 0.5 L/NC
[2022-06-07 07:55] VITALS: BP 143/65
[2022-06-07] MEDS: BRIMONIDINE 0.2% OPHT DROP 10 ML BOTTLE EACHEYE SCH ×2 (08:51→16:39)
[2022-06-07] MEDS: FLUTICASONE/VILANTEROL 1 EACH BLST.W.DEV INH SCH (08:51)
[2022-06-07] MEDS: JARDIANCE 25 MG PO SCH (08:52)
[2022-06-07] MEDS: CARBIDOPA PO SCH ×3 (08:52→16:39)
[2022-06-07] MEDS: LEVODOPA PO SCH ×3 (08:52→16:39)
[2022-06-07] MEDS: ENTACAPONE PO SCH ×3 (08:52→16:39)
[2022-06-07] MEDS: AMIODARONE HCL 200 MG TABLET PO SCH (08:52)
[2022-06-07] MEDS: [UNRECOGNIZED DRUG - OTHER] PO SCH (08:52)
[2022-06-07] MEDS: [UNRECOGNIZED DRUG - OTHER] PO SCH ×3 (08:52→16:39)
[2022-06-07] MEDS: prednisoLONE ACET 1% OPHT DROP 5 ML BOTTLE RIGHTEYE SCH (08:53)
[2022-06-07] MEDS: CYANOCOBALAMIN 1,000 MCG TABLET PO SCH (08:53)
[2022-06-07] MEDS: POTASSIUM CHLORIDE 8 MEQ TAB.PRT.SR PO SCH ×2 (08:53→16:39)
[2022-06-07] MEDS: buPROPion SR 150 MG TABLET.SA PO SCH (08:53)
[2022-06-07] MEDS ORDERED: TRAM50TA2 PO (10:49)
[2022-06-07] MEDS ORDERED: FLUT1BLS INH (10:49)
[2022-06-07] MEDS ORDERED: TEMA15CA PO (10:49)
[2022-06-07] MEDS ORDERED: AMIO200T6 PO (10:49)
[2022-06-07] MEDS ORDERED: RIVA15TA PO (10:49)
[2022-06-07] MEDS ORDERED: GUAI5SYR PO (10:49)
--- NOTE | 2022-06-07 11:00 | NUR ---
Assisted out of bed by PT, unsteady, ambulated with FWW in the room
[2022-06-07 11:51] VITALS: BP 106/59
[2022-06-07] MEDS: ALBUTEROL SULFATE 1.25 MG/3 ML NEBU NEB PRN (13:30)
[2022-06-07 13:45] VITALS: BP 120/63
[2022-06-07] MEDS: MORPHINE SULFATE 2 MG/1 ML DISP.SYRIN IV PRN (13:45)
--- NOTE | 2022-06-07 13:45 | NUR ---
Reports of shortness of breath. VS checked. O2 at 0.5L/NC with O2 sat of 97%. HHN given with no relief. Verbalized pain an dnot feeling well, Morphine 2 mg given with relief, resting after. Family at bedside.
[2022-06-07 15:52] VITALS: BP 121/64
[2022-06-07] MEDS: RIVAROXABAN 15 MG TABLET PO SCH (17:06)
--- NOTE | 2022-06-07 17:31 | NUR ---
With discharge order to ARU. Tele removed. O2 at 0.5 L/NC with O2 sat of 97%. Report given to Xiao
== END 2022-06-07 17:45 | DRG 291 ==
LOC: ER 08:54 → MEDSURG3 14:39 → TELE3 17:55 → TELE-TD3 19:36 → TELE3 06-03 11:05 → TELE-TD3 06-04 16:37 → TELE3 06-07 08:11
PROVIDERS: ADMIT Internal Medicine; ATTEND Internal Medicine
PROC: 05H633Z Insertion of Infusion Device into Left Subclavian Vein, Percutaneous Approach (ICD-10-PCS; principal; 2022-06-02)
PROC: B547ZZA Ultrasonography of Left Subclavian Vein, Guidance (ICD-10-PCS; 2022-06-02)
DX: I50.31 Acute diastolic (congestive) heart failure (principal); J69.0 Pneumonitis due to inhalation of food and vomit; E87.1 Hypo-osmolality and hyponatremia; I48.20 Chronic atrial fibrillation, unspecified; N39.0 Urinary tract infection, site not specified; G93.40 Encephalopathy, unspecified; S70.11XA Contusion of right thigh, initial encounter; W18.30XA Fall on same level, unspecified, initial encounter; Z91.81 History of falling; Z79.01 Long term (current) use of anticoagulants; I48.0 Paroxysmal atrial fibrillation; E78.5 Hyperlipidemia, unspecified; Z74.09 Other reduced mobility; E87.6 Hypokalemia; Z20.822 Contact with and (suspected) exposure to COVID-19; Z87.891 Personal history of nicotine dependence; G20 Parkinson's disease; F02.80 Dementia in other diseases classified elsewhere, unspecified severity, without behavioral disturbance, psychotic disturbance, mood disturbance, and anxiety; M19.90 Unspecified osteoarthritis, unspecified site; J44.9 Chronic obstructive pulmonary disease, unspecified; D64.9 Anemia, unspecified; W19.XXXA Unspecified fall, initial encounter; Y93.9 Activity, unspecified; Y92.009 Unspecified place in unspecified non-institutional (private) residence as the place of occurrence of the external cause; R29.6 Repeated falls; K59.09 Other constipation; I73.9 Peripheral vascular disease, unspecified; F41.9 Anxiety disorder, unspecified; H40.9 Unspecified glaucoma; S51.011A Laceration without foreign body of right elbow, initial encounter; R26.81 Unsteadiness on feet; F32.A Depression, unspecified
CPT/HCPCS: 36415; 70450; 71045; 73502; 73551; 73700; 82652; 83550; 83735; 84100; 84443; 84484; 85025; 85610; 87086; 93005; 93307; 94640; 94664; A4663; A6209; G0378; J0282; J2060; J2270; J2543; J2650; J3480; J7040; J7050

== ENCOUNTER 2022-06-07 17:56 | Inpatient (IN) | payer MEDICARE ==
[~2022-06-07] VITALS: Ht 157.5 cm; Wt 54.0 kg
[~2022-06-07 17:56] MED LIST: AMIO200T6 PO; BRIM5DRO3 EACHEYE; BROM3DRO RIGHTEYE; BUPR150T10 PO; CYAN-51 PO; DILT120C51 PO; EMPA25TA PO; ESCI20TA PO; FLUT1BLS INH; FURO-152 PO; GUAI5SYR PO; LINA145C PO; MELA5TAB PO; OLME20TA13 PO; OMEP20CA15 PO; POTA10CA43 PO; PRED5DRO16 RIGHTEYE; RIVA15TA PO; RIVA20TA PO; SIMV-46 PO; TEMA15CA PO; TRAM50TA2 PO; [UNRECOGNIZED DRUG - CODE] PO
[2022-06-07] MEDS ORDERED: Medication Not On Formulary EA (Linaclotide (Linzess) 145 MCG) PO PRN (18:45)
[2022-06-07] MEDS ORDERED: GUAIFENESIN/DEXTROMETHORPHAN 5 ML UDC PO PRN (18:45)
[2022-06-07 20:34] VITALS: BP 116/49
[2022-06-07] MEDS ORDERED: TEMAZEPAM 15 MG CAPSULE PO PRN (21:00)
[2022-06-07] MEDS ORDERED: Medication Not On Formulary EA (Melatonin 5 MG) PO SCH (21:00)
[2022-06-07] MEDS: CARBIDOPA LEVODOPA ENTACAPONE PO SCH (21:20)
[2022-06-07] MEDS: MELATONIN 3 MG TABLET PO SCH (21:21)
[2022-06-07] MEDS: SIMVASTATIN 20 MG TABLET PO SCH (21:22)
[2022-06-07] MEDS: AMIODARONE HCL 200 MG TABLET PO SCH (21:23)
[2022-06-07] MEDS: LEVALBUTEROL HCL NEB 0.63 MG/3 ML NEBU NEB PRN (21:58)
[2022-06-08] MEDS: TRAMADOL HCL 50 MG TABLET PO PRN (00:18)
[2022-06-08 04:31] VITALS: BP 141/72
[2022-06-08] MEDS: PANTOPRAZOLE SODIUM 40 MG TABLET.DR PO SCH (06:04)
[2022-06-08] MEDS: LEVALBUTEROL HCL NEB 0.63 MG/3 ML NEBU NEB PRN ×2 (07:26→19:50)
[2022-06-08 07:35] VITALS: BP 154/64
[2022-06-08] MEDS ORDERED: POTASSIUM CHLORIDE 10 MEQ TAB.PRT.SR PO SCH (09:00)
[2022-06-08] MEDS ORDERED: FUROSEMIDE 20 MG TABLET PO SCH (09:00)
[2022-06-08] MEDS ORDERED: DILTIAZEM HCL CD 120 MG CAP.SR.24H PO SCH (09:00)
[2022-06-08] MEDS ORDERED: BRIMONIDINE-P 0.1% OPHTH DROP 5 ML DROPS EACHEYE SCH (09:00)
[2022-06-08] MEDS ORDERED: Medication Not On Formulary EA (Omeprazole 20 MG) PO SCH (09:00)
[2022-06-08] MEDS ORDERED: FLUTICASONE/VILANTEROL 1 EACH BLST.W.DEV INH SCH (09:00)
[2022-06-08] MEDS: EMPAGLIFLOZIN 25 MG PO SCH (09:02)
[2022-06-08] MEDS: prednisoLONE ACET 1% OPHT DROP 5 ML BOTTLE RIGHTEYE SCH (09:02)
[2022-06-08] MEDS: CARBIDOPA LEVODOPA ENTACAPONE PO SCH ×4 (09:02→20:48)
[2022-06-08] MEDS: BRIMONIDINE 0.2% OPHT DROP 10 ML BOTTLE EACHEYE SCH ×2 (09:02→17:01)
[2022-06-08] MEDS: FLUTICASONE/VILANTEROL 1 EACH BLST.W.DEV INH SCH (09:02)
[2022-06-08] MEDS: AMIODARONE HCL 200 MG TABLET PO SCH ×2 (09:03→20:48)
[2022-06-08] MEDS: ESCITALOPRAM OXALATE 10 MG TABLET PO SCH (09:04)
[2022-06-08] MEDS: buPROPion SR 150 MG TABLET.SA PO SCH (09:04)
[2022-06-08] MEDS: LOSARTAN POTASSIUM 25 MG TABLET PO SCH (09:05)
[2022-06-08] MEDS: CYANOCOBALAMIN 1,000 MCG TABLET PO SCH (09:05)
[2022-06-08 16:30] VITALS: BP 101/46
[2022-06-08] MEDS: POTASSIUM CHLORIDE 8 MEQ TAB.PRT.SR PO SCH (17:00)
[2022-06-08] MEDS: RIVAROXABAN 15 MG TABLET PO SCH (17:02)
[2022-06-08 20:30] VITALS: BP 133/62
[2022-06-08] MEDS: MELATONIN 3 MG TABLET PO SCH (20:48)
[2022-06-08] MEDS: SIMVASTATIN 20 MG TABLET PO SCH (20:48)
[2022-06-08] MEDS: CLOTRIMAZOLE 1% CREAM 30 GM TUBE TOP SCH (20:50)
[2022-06-09 04:15] VITALS: BP 140/62
[2022-06-09] MEDS: PANTOPRAZOLE SODIUM 40 MG TABLET.DR PO SCH (06:02)
[2022-06-09] MEDS: LEVALBUTEROL HCL NEB 0.63 MG/3 ML NEBU NEB PRN ×2 (07:36→20:27)
[2022-06-09 08:00] VITALS: BP 140/61
[2022-06-09] MEDS ORDERED: ALPRAZOLAM 0.25 MG TABLET PO PRN (09:00)
[2022-06-09] MEDS: LOSARTAN POTASSIUM 25 MG TABLET PO SCH (09:29)
[2022-06-09] MEDS: AMIODARONE HCL 200 MG TABLET PO SCH ×2 (09:29→21:00)
[2022-06-09] MEDS: CYANOCOBALAMIN 1,000 MCG TABLET PO SCH (09:29)
[2022-06-09] MEDS: ESCITALOPRAM OXALATE 10 MG TABLET PO SCH (09:29)
[2022-06-09] MEDS: EMPAGLIFLOZIN 25 MG PO SCH (09:30)
[2022-06-09] MEDS: CARBIDOPA LEVODOPA ENTACAPONE PO SCH ×3 (09:30→17:39)
[2022-06-09] MEDS: POTASSIUM CHLORIDE 8 MEQ TAB.PRT.SR PO SCH ×2 (09:30→17:37)
[2022-06-09] MEDS: buPROPion SR 150 MG TABLET.SA PO SCH (09:32)
[2022-06-09] MEDS: BRIMONIDINE 0.2% OPHT DROP 10 ML BOTTLE EACHEYE SCH ×2 (09:32→17:40)
[2022-06-09] MEDS: prednisoLONE ACET 1% OPHT DROP 5 ML BOTTLE RIGHTEYE SCH (09:33)
[2022-06-09] MEDS: FLUTICASONE/VILANTEROL 1 EACH BLST.W.DEV INH SCH (09:33)
[2022-06-09] MEDS: CLOTRIMAZOLE 1% CREAM 30 GM TUBE TOP SCH ×2 (09:42→21:00)
[2022-06-09 17:06] VITALS: BP 128/51
[2022-06-09] MEDS: RIVAROXABAN 15 MG TABLET PO SCH (17:41)
[2022-06-09 20:45] VITALS: BP 105/44
[2022-06-09] MEDS: MELATONIN 3 MG TABLET PO SCH (22:04)
[2022-06-09] MEDS: SIMVASTATIN 20 MG TABLET PO SCH (22:06)
[2022-06-10 04:25] VITALS: BP 107/56
[2022-06-10] MEDS: PANTOPRAZOLE SODIUM 40 MG TABLET.DR PO SCH ×2 (07:17→09:12)
[2022-06-10 07:31] VITALS: BP 142/50
[2022-06-10] MEDS: POTASSIUM CHLORIDE 8 MEQ TAB.PRT.SR PO SCH ×2 (09:12→17:33)
[2022-06-10] MEDS: buPROPion SR 150 MG TABLET.SA PO SCH (09:12)
[2022-06-10] MEDS: CYANOCOBALAMIN 1,000 MCG TABLET PO SCH (09:12)
[2022-06-10] MEDS: ESCITALOPRAM OXALATE 10 MG TABLET PO SCH (09:12)
[2022-06-10] MEDS: LOSARTAN POTASSIUM 25 MG TABLET PO SCH (09:13)
[2022-06-10] MEDS: FLUTICASONE/VILANTEROL 1 EACH BLST.W.DEV INH SCH (09:14)
[2022-06-10] MEDS: EMPAGLIFLOZIN 25 MG PO SCH (09:15)
[2022-06-10] MEDS: BRIMONIDINE 0.2% OPHT DROP 10 ML BOTTLE EACHEYE SCH ×2 (09:15→17:35)
[2022-06-10] MEDS: prednisoLONE ACET 1% OPHT DROP 5 ML BOTTLE RIGHTEYE SCH (09:16)
[2022-06-10] MEDS: CLOTRIMAZOLE 1% CREAM 30 GM TUBE TOP SCH ×2 (09:16→21:44)
[2022-06-10] MEDS ORDERED: ALBUTEROL SULFATE 1.25 MG/3 ML NEBU NEB PRN (10:30)
[2022-06-10] MEDS: AMIODARONE HCL 200 MG TABLET PO SCH ×2 (10:31→21:43)
[2022-06-10] MEDS: CARBIDOPA LEVODOPA ENTACAPONE PO SCH ×4 (10:42→21:00)
[2022-06-10 15:58] VITALS: BP 124/60
[2022-06-10] MEDS: RIVAROXABAN 15 MG TABLET PO SCH (17:33)
[2022-06-10 20:00] VITALS: BP 120/63
[2022-06-10] MEDS: SIMVASTATIN 20 MG TABLET PO SCH (21:43)
[2022-06-10] MEDS: MELATONIN 3 MG TABLET PO SCH (21:44)
[2022-06-11 04:00] VITALS: BP 124/65
[2022-06-11 07:41] VITALS: BP 145/58
[2022-06-11] MEDS: AMIODARONE HCL 200 MG TABLET PO SCH ×2 (08:57→21:28)
[2022-06-11] MEDS: CYANOCOBALAMIN 1,000 MCG TABLET PO SCH (08:57)
[2022-06-11] MEDS: buPROPion SR 150 MG TABLET.SA PO SCH (08:57)
[2022-06-11] MEDS: EMPAGLIFLOZIN 25 MG PO SCH (08:58)
[2022-06-11] MEDS: POTASSIUM CHLORIDE 8 MEQ TAB.PRT.SR PO SCH ×2 (08:58→16:32)
[2022-06-11] MEDS: ESCITALOPRAM OXALATE 10 MG TABLET PO SCH (08:58)
[2022-06-11] MEDS: LOSARTAN POTASSIUM 25 MG TABLET PO SCH (08:58)
[2022-06-11] MEDS: BRIMONIDINE 0.2% OPHT DROP 10 ML BOTTLE EACHEYE SCH ×2 (08:59→16:34)
[2022-06-11] MEDS: prednisoLONE ACET 1% OPHT DROP 5 ML BOTTLE RIGHTEYE SCH (08:59)
[2022-06-11] MEDS: CARBIDOPA LEVODOPA ENTACAPONE PO SCH ×4 (08:59→21:33)
[2022-06-11] MEDS: CLOTRIMAZOLE 1% CREAM 30 GM TUBE TOP SCH (09:00)
[2022-06-11] MEDS: FLUTICASONE/VILANTEROL 1 EACH BLST.W.DEV INH SCH (09:01)
[2022-06-11 15:53] VITALS: BP 110/39
[2022-06-11] MEDS: RIVAROXABAN 15 MG TABLET PO SCH (17:39)
[2022-06-11] MEDS: MELATONIN 3 MG TABLET PO SCH (21:26)
[2022-06-11] MEDS: SIMVASTATIN 20 MG TABLET PO SCH (21:26)
[2022-06-11] MEDS: CLOTRIMAZOLE/BETAMET DIPROP CREAM 15 GM TUBE TOP SCH (21:39)
[2022-06-11 22:39] VITALS: BP 104/45
[2022-06-12] MEDS: PANTOPRAZOLE SODIUM 40 MG TABLET.DR PO SCH (06:41)
[2022-06-12 06:44] VITALS: BP 139/75
[2022-06-12 08:02] VITALS: BP 117/43
[2022-06-12] MEDS: buPROPion SR 150 MG TABLET.SA PO SCH (08:27)
[2022-06-12] MEDS: ESCITALOPRAM OXALATE 10 MG TABLET PO SCH (08:28)
[2022-06-12] MEDS: CYANOCOBALAMIN 1,000 MCG TABLET PO SCH (08:28)
[2022-06-12] MEDS: AMIODARONE HCL 200 MG TABLET PO SCH ×2 (08:28→21:18)
[2022-06-12] MEDS: POTASSIUM CHLORIDE 8 MEQ TAB.PRT.SR PO SCH ×2 (08:29→16:55)
[2022-06-12] MEDS: LOSARTAN POTASSIUM 25 MG TABLET PO SCH (08:29)
[2022-06-12] MEDS: prednisoLONE ACET 1% OPHT DROP 5 ML BOTTLE RIGHTEYE SCH (08:29)
[2022-06-12] MEDS: FLUTICASONE/VILANTEROL 1 EACH BLST.W.DEV INH SCH (08:29)
[2022-06-12] MEDS: CARBIDOPA LEVODOPA ENTACAPONE PO SCH ×4 (08:30→21:17)
[2022-06-12] MEDS: BRIMONIDINE 0.2% OPHT DROP 10 ML BOTTLE EACHEYE SCH ×2 (08:30→16:56)
[2022-06-12] MEDS: EMPAGLIFLOZIN 25 MG PO SCH (08:30)
[2022-06-12] MEDS: CLOTRIMAZOLE/BETAMET DIPROP CREAM 15 GM TUBE TOP SCH ×2 (08:31→21:17)
[2022-06-12 16:18] VITALS: BP 114/55
[2022-06-12] MEDS ORDERED: IPRATROPIUM BROMIDE 0.5 MG/2.5 ML NEBU NEB PRN (17:30)
[2022-06-12] MEDS ORDERED: levoFLOXacin 500 MG/D5W 500 MG in PREMIXED 1 EACH IV SCH (17:30)
[2022-06-12] MEDS: RIVAROXABAN 15 MG TABLET PO SCH (18:47)
[2022-06-12] MEDS: methylPREDNISolone SOD SUCC 40 MG/ML VIAL IV SCH (18:49)
[2022-06-12 20:00] VITALS: BP 127/52
[2022-06-12] MEDS: MELATONIN 3 MG TABLET PO SCH (21:17)
[2022-06-12] MEDS: SIMVASTATIN 20 MG TABLET PO SCH (21:17)
[2022-06-13] VITALS: BP 129/73
[2022-06-13] MEDS: methylPREDNISolone SOD SUCC 40 MG/ML VIAL IV SCH ×3 (01:33→21:13)
[2022-06-13 04:00] VITALS: BP 139/85
[2022-06-13] MEDS: PANTOPRAZOLE SODIUM 40 MG TABLET.DR PO SCH (06:25)
[2022-06-13 06:49] LABS: HEMATOCRIT 30.4 % (31.2-41.9); MEAN CORPUSCULAR HEMOGLOBIN 32.1 uug (24.7-32.8); MEAN CORPUSCULAR VOLUME 96.6 fL (75.5-95.3); PLATELET COUNT (AUTO) 340 K/uL (179-408)
[2022-06-13 07:13] LABS: BILIRUBIN,TOTAL 0.7 mg/dL (0.2-1.0); CREATININE 0.9 mg/dL (0.6-1.3); MAGNESIUM 2.6 mg/dL (1.8-2.4); PHOSPHOROUS 4.9 mg/dL (2.5-4.9); POTASSIUM 4.8 mmol/L (3.5-5.1); TOTAL PROTEIN, SERUM 5.7 g/dL (6.4-8.2)
[2022-06-13 07:38] VITALS: BP 125/64
[2022-06-13] MEDS: CARBIDOPA LEVODOPA ENTACAPONE PO SCH ×4 (09:20→21:14)
[2022-06-13] MEDS: FLUTICASONE/VILANTEROL 1 EACH BLST.W.DEV INH SCH (09:20)
[2022-06-13] MEDS: CLOTRIMAZOLE/BETAMET DIPROP CREAM 15 GM TUBE TOP SCH ×2 (09:21→21:14)
[2022-06-13] MEDS: ESCITALOPRAM OXALATE 10 MG TABLET PO SCH (09:21)
[2022-06-13] MEDS: BRIMONIDINE 0.2% OPHT DROP 10 ML BOTTLE EACHEYE SCH ×2 (09:21→17:24)
[2022-06-13] MEDS: prednisoLONE ACET 1% OPHT DROP 5 ML BOTTLE RIGHTEYE SCH (09:21)
[2022-06-13] MEDS: LOSARTAN POTASSIUM 25 MG TABLET PO SCH (09:22)
[2022-06-13] MEDS: AMIODARONE HCL 200 MG TABLET PO SCH ×2 (09:23→21:14)
[2022-06-13] MEDS: buPROPion SR 150 MG TABLET.SA PO SCH (09:23)
[2022-06-13] MEDS: POTASSIUM CHLORIDE 8 MEQ TAB.PRT.SR PO SCH ×2 (09:23→17:23)
[2022-06-13] MEDS: CYANOCOBALAMIN 1,000 MCG TABLET PO SCH (09:23)
[2022-06-13] MEDS: EMPAGLIFLOZIN 25 MG PO SCH (09:24)
[2022-06-13] MEDS: MIRALAX 17 GM POWD.PACK PO SCH (09:58)
[2022-06-13] MEDS ORDERED: BISACODYL 5 MG TABLET.DR PO ONE (10:00)
[2022-06-13 11:29] VITALS: BP 125/64
[2022-06-13 16:45] VITALS: BP 123/62
[2022-06-13] MEDS: RIVAROXABAN 15 MG TABLET PO SCH (17:23)
[2022-06-13 20:00] VITALS: BP 130/53
[2022-06-13] MEDS: SIMVASTATIN 20 MG TABLET PO SCH (21:13)
[2022-06-13] MEDS: MELATONIN 3 MG TABLET PO SCH (21:13)
[2022-06-14 04:00] VITALS: BP 125/52
[2022-06-14] MEDS: PANTOPRAZOLE SODIUM 40 MG TABLET.DR PO SCH (07:09)
[2022-06-14 07:45] VITALS: BP 134/61
[2022-06-14] MEDS: FLUTICASONE/VILANTEROL 1 EACH BLST.W.DEV INH SCH (09:31)
[2022-06-14] MEDS: BRIMONIDINE 0.2% OPHT DROP 10 ML BOTTLE EACHEYE SCH ×2 (09:31→17:48)
[2022-06-14] MEDS: prednisoLONE ACET 1% OPHT DROP 5 ML BOTTLE RIGHTEYE SCH (09:31)
[2022-06-14] MEDS: POTASSIUM CHLORIDE 8 MEQ TAB.PRT.SR PO SCH ×2 (09:32→17:48)
[2022-06-14] MEDS: methylPREDNISolone SOD SUCC 40 MG/ML VIAL IV SCH ×2 (09:32→20:32)
[2022-06-14] MEDS: CYANOCOBALAMIN 1,000 MCG TABLET PO SCH (09:32)
[2022-06-14] MEDS: CARBIDOPA LEVODOPA ENTACAPONE PO SCH ×4 (09:33→20:31)
[2022-06-14] MEDS: LOSARTAN POTASSIUM 25 MG TABLET PO SCH (09:33)
[2022-06-14] MEDS: ESCITALOPRAM OXALATE 10 MG TABLET PO SCH (09:33)
[2022-06-14] MEDS: AMIODARONE HCL 200 MG TABLET PO SCH ×2 (09:34→20:30)
[2022-06-14] MEDS: buPROPion SR 150 MG TABLET.SA PO SCH (09:34)
[2022-06-14] MEDS: EMPAGLIFLOZIN 25 MG PO SCH (09:35)
[2022-06-14] MEDS: MIRALAX 17 GM POWD.PACK PO SCH (09:35)
[2022-06-14] MEDS: CLOTRIMAZOLE/BETAMET DIPROP CREAM 15 GM TUBE TOP SCH ×2 (09:36→20:36)
[2022-06-14] MEDS: BISACODYL 5 MG TABLET.DR PO ONE ×2 (10:50→11:25)
[2022-06-14 16:25] VITALS: BP 122/80
[2022-06-14] MEDS ORDERED: MINERAL OIL FLEET ENEMA 133 ML BOTTLE RC ONE (17:15)
[2022-06-14] MEDS: RIVAROXABAN 15 MG TABLET PO SCH (17:49)
[2022-06-14] MEDS: SIMVASTATIN 20 MG TABLET PO SCH (20:29)
[2022-06-14] MEDS: MELATONIN 3 MG TABLET PO SCH (20:32)
[2022-06-14] MEDS ORDERED: SIMETHICONE 80 MG TAB.CHEW PO PRN (23:00)
[2022-06-15] MEDS: PANTOPRAZOLE SODIUM 40 MG TABLET.DR PO SCH (06:07)
[2022-06-15 07:41] VITALS: BP 156/80
[2022-06-15] MEDS: MIRALAX 17 GM POWD.PACK PO SCH (10:09)
[2022-06-15] MEDS: CARBIDOPA LEVODOPA ENTACAPONE PO SCH ×4 (10:09→20:58)
[2022-06-15] MEDS: EMPAGLIFLOZIN 25 MG PO SCH (10:10)
[2022-06-15] MEDS: methylPREDNISolone SOD SUCC 40 MG/ML VIAL IV SCH ×2 (10:10→21:00)
[2022-06-15] MEDS: LOSARTAN POTASSIUM 25 MG TABLET PO SCH (10:11)
[2022-06-15] MEDS: POTASSIUM CHLORIDE 8 MEQ TAB.PRT.SR PO SCH ×2 (10:11→17:13)
[2022-06-15] MEDS: buPROPion SR 150 MG TABLET.SA PO SCH (10:11)
[2022-06-15] MEDS: BRIMONIDINE 0.2% OPHT DROP 10 ML BOTTLE EACHEYE SCH ×2 (10:12→17:13)
[2022-06-15] MEDS: AMIODARONE HCL 200 MG TABLET PO SCH ×2 (10:12→21:00)
[2022-06-15] MEDS: prednisoLONE ACET 1% OPHT DROP 5 ML BOTTLE RIGHTEYE SCH (10:12)
[2022-06-15] MEDS: ESCITALOPRAM OXALATE 10 MG TABLET PO SCH (10:13)
[2022-06-15] MEDS: FLUTICASONE/VILANTEROL 1 EACH BLST.W.DEV INH SCH (10:13)
[2022-06-15] MEDS: CLOTRIMAZOLE/BETAMET DIPROP CREAM 15 GM TUBE TOP SCH ×2 (10:14→21:01)
[2022-06-15] MEDS: CYANOCOBALAMIN 1,000 MCG TABLET PO SCH (10:14)
[2022-06-15 15:38] VITALS: BP 130/66
[2022-06-15] MEDS: RIVAROXABAN 15 MG TABLET PO SCH (17:14)
[2022-06-15 20:00] VITALS: BP 110/56
[2022-06-15] MEDS: SIMVASTATIN 20 MG TABLET PO SCH (20:58)
[2022-06-15] MEDS: MELATONIN 3 MG TABLET PO SCH (20:58)
[2022-06-16 04:00] VITALS: BP 145/89
[2022-06-16] MEDS: PANTOPRAZOLE SODIUM 40 MG TABLET.DR PO SCH (06:16)
[2022-06-16 08:46] VITALS: BP 148/70
[2022-06-16] MEDS: LOSARTAN POTASSIUM 25 MG TABLET PO SCH (08:54)
[2022-06-16] MEDS: methylPREDNISolone SOD SUCC 40 MG/ML VIAL IV SCH ×2 (08:54→21:43)
[2022-06-16] MEDS: MIRALAX 17 GM POWD.PACK PO SCH (08:54)
[2022-06-16] MEDS: AMIODARONE HCL 200 MG TABLET PO SCH ×2 (08:54→21:45)
[2022-06-16] MEDS: ESCITALOPRAM OXALATE 10 MG TABLET PO SCH (08:55)
[2022-06-16] MEDS: prednisoLONE ACET 1% OPHT DROP 5 ML BOTTLE RIGHTEYE SCH (08:55)
[2022-06-16] MEDS: buPROPion SR 150 MG TABLET.SA PO SCH (08:55)
[2022-06-16] MEDS: CYANOCOBALAMIN 1,000 MCG TABLET PO SCH (08:55)
[2022-06-16] MEDS: POTASSIUM CHLORIDE 8 MEQ TAB.PRT.SR PO SCH ×2 (08:55→17:22)
[2022-06-16] MEDS: FLUTICASONE/VILANTEROL 1 EACH BLST.W.DEV INH SCH (08:56)
[2022-06-16] MEDS: CARBIDOPA LEVODOPA ENTACAPONE PO SCH ×4 (08:56→21:45)
[2022-06-16] MEDS: BRIMONIDINE 0.2% OPHT DROP 10 ML BOTTLE EACHEYE SCH ×2 (08:56→17:22)
[2022-06-16] MEDS: CLOTRIMAZOLE/BETAMET DIPROP CREAM 15 GM TUBE TOP SCH ×2 (08:57→21:43)
[2022-06-16] MEDS: EMPAGLIFLOZIN 25 MG PO SCH (08:57)
[2022-06-16] MEDS ORDERED: ACETAMINOPHEN 325 MG TABLET PO PRN (12:00)
[2022-06-16] MEDS ORDERED: MAGNESIUM CITRATE 296 ML BOTTLE PO ONE (13:00)
[2022-06-16] MEDS: PHENYLEPHRINE/SHARK LIVER/CCB 1 EACH SUPP.RECT RC SCH ×2 (13:16→21:43)
[2022-06-16] MEDS ORDERED: MAGNESIUM HYDROXIDE 30 ML LIQUID UDC PO ONE (13:30)
[2022-06-16 16:28] VITALS: BP 141/73
[2022-06-16] MEDS: RIVAROXABAN 15 MG TABLET PO SCH (17:24)
[2022-06-16 20:00] VITALS: BP 139/62
[2022-06-16] MEDS: MELATONIN 3 MG TABLET PO SCH (21:44)
[2022-06-16] MEDS: SIMVASTATIN 20 MG TABLET PO SCH (21:45)
[2022-06-17 04:00] VITALS: BP 130/70
[2022-06-17] MEDS: PANTOPRAZOLE SODIUM 40 MG TABLET.DR PO SCH (06:17)
[2022-06-17 07:55] VITALS: BP 150/66
[2022-06-17] MEDS: methylPREDNISolone SOD SUCC 40 MG/ML VIAL IV SCH ×2 (08:32→20:43)
[2022-06-17] MEDS: buPROPion SR 150 MG TABLET.SA PO SCH (09:52)
[2022-06-17] MEDS: ESCITALOPRAM OXALATE 10 MG TABLET PO SCH (09:52)
[2022-06-17] MEDS: CYANOCOBALAMIN 1,000 MCG TABLET PO SCH (09:52)
[2022-06-17] MEDS: POTASSIUM CHLORIDE 8 MEQ TAB.PRT.SR PO SCH ×2 (09:53→17:10)
[2022-06-17] MEDS: LOSARTAN POTASSIUM 25 MG TABLET PO SCH (09:56)
[2022-06-17] MEDS: AMIODARONE HCL 200 MG TABLET PO SCH ×2 (09:58→20:43)
[2022-06-17] MEDS: prednisoLONE ACET 1% OPHT DROP 5 ML BOTTLE RIGHTEYE SCH (09:58)
[2022-06-17] MEDS: MIRALAX 17 GM POWD.PACK PO SCH (09:58)
[2022-06-17] MEDS: CARBIDOPA LEVODOPA ENTACAPONE PO SCH ×4 (09:59→20:42)
[2022-06-17] MEDS: EMPAGLIFLOZIN 25 MG PO SCH (09:59)
[2022-06-17] MEDS: CLOTRIMAZOLE/BETAMET DIPROP CREAM 15 GM TUBE TOP SCH ×2 (09:59→20:41)
[2022-06-17] MEDS: FLUTICASONE/VILANTEROL 1 EACH BLST.W.DEV INH SCH (10:02)
[2022-06-17] MEDS: BRIMONIDINE 0.2% OPHT DROP 10 ML BOTTLE EACHEYE SCH ×2 (10:02→17:10)
[2022-06-17] MEDS: PHENYLEPHRINE/SHARK LIVER/CCB 1 EACH SUPP.RECT RC SCH ×2 (10:07→20:42)
[2022-06-17] MEDS: GLUCERNA SHAKE 237 ML CAN PO SCH ×2 (15:19→17:09)
[2022-06-17 17:17] VITALS: BP 124/56
[2022-06-17] MEDS: RIVAROXABAN 15 MG TABLET PO SCH (18:42)
[2022-06-17 20:00] VITALS: BP 122/54
[2022-06-17] MEDS: MELATONIN 3 MG TABLET PO SCH (20:43)
[2022-06-17] MEDS: SIMVASTATIN 20 MG TABLET PO SCH (20:43)
[2022-06-18 04:00] VITALS: BP 119/65
[2022-06-18] MEDS: PANTOPRAZOLE SODIUM 40 MG TABLET.DR PO SCH (07:03)
[2022-06-18] MEDS: methylPREDNISolone SOD SUCC 40 MG/ML VIAL IV SCH (09:57)
[2022-06-18] MEDS: MIRALAX 17 GM POWD.PACK PO SCH (09:57)
[2022-06-18] MEDS: POTASSIUM CHLORIDE 8 MEQ TAB.PRT.SR PO SCH ×2 (09:57→17:38)
[2022-06-18] MEDS: FLUTICASONE/VILANTEROL 1 EACH BLST.W.DEV INH SCH (09:57)
[2022-06-18] MEDS: PHENYLEPHRINE/SHARK LIVER/CCB 1 EACH SUPP.RECT RC SCH ×2 (09:58→20:30)
[2022-06-18] MEDS: CYANOCOBALAMIN 1,000 MCG TABLET PO SCH (09:58)
[2022-06-18] MEDS: LOSARTAN POTASSIUM 25 MG TABLET PO SCH (09:58)
[2022-06-18] MEDS: AMIODARONE HCL 200 MG TABLET PO SCH ×2 (09:58→20:32)
[2022-06-18] MEDS: ESCITALOPRAM OXALATE 10 MG TABLET PO SCH (09:58)
[2022-06-18] MEDS: CARBIDOPA LEVODOPA ENTACAPONE PO SCH ×4 (09:59→20:31)
[2022-06-18] MEDS: EMPAGLIFLOZIN 25 MG PO SCH (09:59)
[2022-06-18] MEDS: BRIMONIDINE 0.2% OPHT DROP 10 ML BOTTLE EACHEYE SCH ×2 (09:59→17:38)
[2022-06-18] MEDS: prednisoLONE ACET 1% OPHT DROP 5 ML BOTTLE RIGHTEYE SCH (10:00)
[2022-06-18] MEDS: buPROPion SR 150 MG TABLET.SA PO SCH (10:17)
[2022-06-18] MEDS: CLOTRIMAZOLE/BETAMET DIPROP CREAM 15 GM TUBE TOP SCH ×2 (10:21→20:41)
[2022-06-18] MEDS: GLUCERNA SHAKE 237 ML CAN PO SCH ×2 (10:22→17:43)
[2022-06-18 11:04] VITALS: BP 122/64
[2022-06-18 16:00] VITALS: BP 147/84
[2022-06-18] MEDS: RIVAROXABAN 15 MG TABLET PO SCH (18:07)
[2022-06-18 20:00] VITALS: BP 125/67
[2022-06-18] MEDS: SIMVASTATIN 20 MG TABLET PO SCH (20:30)
[2022-06-18] MEDS: MELATONIN 3 MG TABLET PO SCH (20:30)
[2022-06-19 04:00] VITALS: BP 124/87
[2022-06-19] MEDS: TRAMADOL HCL 50 MG TABLET PO PRN (05:51)
[2022-06-19] MEDS: PANTOPRAZOLE SODIUM 40 MG TABLET.DR PO SCH (06:02)
[2022-06-19 08:48] VITALS: BP 124/79
[2022-06-19] MEDS: LOSARTAN POTASSIUM 25 MG TABLET PO SCH (09:00)
[2022-06-19] MEDS: POTASSIUM CHLORIDE 8 MEQ TAB.PRT.SR PO SCH ×2 (09:18→17:04)
[2022-06-19] MEDS: buPROPion SR 150 MG TABLET.SA PO SCH (09:18)
[2022-06-19] MEDS: CYANOCOBALAMIN 1,000 MCG TABLET PO SCH (09:19)
[2022-06-19] MEDS: ESCITALOPRAM OXALATE 10 MG TABLET PO SCH (09:19)
[2022-06-19] MEDS: prednisoLONE ACET 1% OPHT DROP 5 ML BOTTLE RIGHTEYE SCH (09:20)
[2022-06-19] MEDS: EMPAGLIFLOZIN 25 MG PO SCH (09:20)
[2022-06-19] MEDS: BRIMONIDINE 0.2% OPHT DROP 10 ML BOTTLE EACHEYE SCH ×2 (09:20→17:05)
[2022-06-19] MEDS: FLUTICASONE/VILANTEROL 1 EACH BLST.W.DEV INH SCH (09:20)
[2022-06-19] MEDS: MIRALAX 17 GM POWD.PACK PO SCH (09:21)
[2022-06-19] MEDS: CLOTRIMAZOLE/BETAMET DIPROP CREAM 15 GM TUBE TOP SCH ×2 (09:21→20:41)
[2022-06-19] MEDS: CARBIDOPA LEVODOPA ENTACAPONE PO SCH ×4 (09:21→20:33)
[2022-06-19] MEDS: AMIODARONE HCL 200 MG TABLET PO SCH ×2 (09:23→20:33)
[2022-06-19] MEDS: PHENYLEPHRINE/SHARK LIVER/CCB 1 EACH SUPP.RECT RC SCH ×2 (09:23→20:30)
[2022-06-19] MEDS: predniSONE 20 MG TABLET PO SCH (09:27)
[2022-06-19] MEDS: GLUCERNA SHAKE 237 ML CAN PO SCH ×2 (09:28→17:13)
[2022-06-19 16:47] VITALS: BP 120/69
[2022-06-19] MEDS: RIVAROXABAN 15 MG TABLET PO SCH (17:04)
[2022-06-19] MEDS: SIMVASTATIN 20 MG TABLET PO SCH (20:38)
[2022-06-19] MEDS: DOCUSATE SODIUM 100 MG CAPSULE PO SCH (20:39)
[2022-06-19] MEDS: MELATONIN 3 MG TABLET PO SCH (20:39)
[2022-06-19 20:49] VITALS: BP 133/59
[2022-06-20 04:30] VITALS: BP 143/76
[2022-06-20] MEDS: PANTOPRAZOLE SODIUM 40 MG TABLET.DR PO SCH (06:09)
[2022-06-20 07:52] VITALS: BP 153/82
[2022-06-20] MEDS: FLUTICASONE/VILANTEROL 1 EACH BLST.W.DEV INH SCH (08:10)
[2022-06-20] MEDS: EMPAGLIFLOZIN 25 MG PO SCH (08:10)
[2022-06-20] MEDS: buPROPion SR 150 MG TABLET.SA PO SCH (08:11)
[2022-06-20] MEDS: MIRALAX 17 GM POWD.PACK PO SCH (08:11)
[2022-06-20] MEDS: CYANOCOBALAMIN 1,000 MCG TABLET PO SCH (08:11)
[2022-06-20] MEDS: CARBIDOPA LEVODOPA ENTACAPONE PO SCH ×4 (08:11→20:39)
[2022-06-20] MEDS: DOCUSATE SODIUM 100 MG CAPSULE PO SCH ×2 (08:11→20:37)
[2022-06-20] MEDS: AMIODARONE HCL 200 MG TABLET PO SCH ×2 (08:11→20:38)
[2022-06-20] MEDS: LOSARTAN POTASSIUM 25 MG TABLET PO SCH (08:11)
[2022-06-20] MEDS: POTASSIUM CHLORIDE 8 MEQ TAB.PRT.SR PO SCH ×2 (08:11→17:02)
[2022-06-20] MEDS: GLUCERNA SHAKE 237 ML CAN PO SCH ×2 (08:12→17:03)
[2022-06-20] MEDS: ESCITALOPRAM OXALATE 10 MG TABLET PO SCH (08:12)
[2022-06-20] MEDS: predniSONE 20 MG TABLET PO SCH (08:13)
[2022-06-20] MEDS: BRIMONIDINE 0.2% OPHT DROP 10 ML BOTTLE EACHEYE SCH ×2 (09:12→17:03)
[2022-06-20] MEDS: prednisoLONE ACET 1% OPHT DROP 5 ML BOTTLE RIGHTEYE SCH (09:12)
[2022-06-20] MEDS: CLOTRIMAZOLE/BETAMET DIPROP CREAM 15 GM TUBE TOP SCH ×2 (09:13→20:49)
[2022-06-20] MEDS: PHENYLEPHRINE/SHARK LIVER/CCB 1 EACH SUPP.RECT RC SCH ×2 (09:55→20:39)
[2022-06-20] MEDS: FUROSEMIDE 20 MG TABLET PO SCH (10:31)
[2022-06-20 15:58] VITALS: BP 135/82
[2022-06-20] MEDS: RIVAROXABAN 15 MG TABLET PO SCH (17:21)
[2022-06-20 20:26] VITALS: BP 103/58
[2022-06-20] MEDS: SIMVASTATIN 20 MG TABLET PO SCH (20:38)
[2022-06-20] MEDS: MELATONIN 3 MG TABLET PO SCH (20:38)
[2022-06-21 04:05] VITALS: BP 112/70
[2022-06-21] MEDS: PANTOPRAZOLE SODIUM 40 MG TABLET.DR PO SCH (06:06)
[2022-06-21 06:33] LABS: MEAN CORPUSCULAR HEMOGLOBIN 32.2 uug (24.7-32.8); MEAN CORPUSCULAR VOLUME 95.6 fL (75.5-95.3); PLATELET COUNT (AUTO) 315 K/uL (179-408)
[2022-06-21 06:46] LABS: CREATININE 0.8 mg/dL (0.6-1.3); MAGNESIUM 2.5 mg/dL (1.8-2.4); PHOSPHOROUS 3.3 mg/dL (2.5-4.9); POTASSIUM 3.7 mmol/L (3.5-5.1)
[2022-06-21 07:42] VITALS: BP 155/86
[2022-06-21 08:03] LABS: ABG BASE EXCESS 1.1 mmol/L; ABG HCO3 23.7 mmol/L; ABG PCO2 31.7 mmHg (35.0-45.0); ABG PH 7.492 (7.350-7.450); ABG PO2 80.6 mmHg (75.0-100.0); ABG SITE RIGHT RADIAL; ABG TOTAL HEMOGLOBIN 12.6 G/dL (12.0-16.0); COHb 0.9 % (0.5-1.5); MetHb 0.1 % (0.0-1.5); O2Hb 95.2 % (94.0-97.0); VENT MODE Room Air
[2022-06-21] MEDS: EMPAGLIFLOZIN 25 MG PO SCH (08:34)
[2022-06-21] MEDS: FLUTICASONE/VILANTEROL 1 EACH BLST.W.DEV INH SCH (08:34)
[2022-06-21] MEDS: BRIMONIDINE 0.2% OPHT DROP 10 ML BOTTLE EACHEYE SCH (08:34)
[2022-06-21] MEDS: prednisoLONE ACET 1% OPHT DROP 5 ML BOTTLE RIGHTEYE SCH (08:34)
[2022-06-21] MEDS: CLOTRIMAZOLE/BETAMET DIPROP CREAM 15 GM TUBE TOP SCH (08:34)
[2022-06-21] MEDS: CARBIDOPA LEVODOPA ENTACAPONE PO SCH ×2 (08:34→13:42)
[2022-06-21] MEDS: MIRALAX 17 GM POWD.PACK PO SCH (08:34)
[2022-06-21] MEDS: CYANOCOBALAMIN 1,000 MCG TABLET PO SCH (08:35)
[2022-06-21] MEDS: ESCITALOPRAM OXALATE 10 MG TABLET PO SCH (08:35)
[2022-06-21] MEDS: buPROPion SR 150 MG TABLET.SA PO SCH (08:35)
[2022-06-21] MEDS: predniSONE 20 MG TABLET PO SCH (08:36)
[2022-06-21] MEDS: POTASSIUM CHLORIDE 8 MEQ TAB.PRT.SR PO SCH (08:36)
[2022-06-21] MEDS: DOCUSATE SODIUM 100 MG CAPSULE PO SCH (08:36)
[2022-06-21] MEDS: LOSARTAN POTASSIUM 25 MG TABLET PO SCH (08:43)
[2022-06-21] MEDS: AMIODARONE HCL 200 MG TABLET PO SCH (08:43)
[2022-06-21] MEDS: FUROSEMIDE 20 MG TABLET PO SCH (08:44)
[2022-06-21] MEDS: GLUCERNA SHAKE 237 ML CAN PO SCH (08:44)
[2022-06-21] MEDS: PHENYLEPHRINE/SHARK LIVER/CCB 1 EACH SUPP.RECT RC SCH (08:45)
[2022-06-21 09:00] VITALS: BP 136/70
[2022-06-21] MEDS ORDERED: PNEUMOCOCCAL 23-VAL P-SAC VAC 0.5 ML VIAL IM ONE (14:30)
== END 2022-06-21 15:45 | DRG 308 ==
PROVIDERS: ADMIT Physical Medicine & Rehabilitation Pain Medicine; ATTEND Physical Medicine & Rehabilitation Pain Medicine
DX: I48.0 Paroxysmal atrial fibrillation (principal); G93.41 Metabolic encephalopathy; J69.0 Pneumonitis due to inhalation of food and vomit; E44.0 Moderate protein-calorie malnutrition; F02.C18 Dementia in other diseases classified elsewhere, severe, with other behavioral disturbance; J44.0 Chronic obstructive pulmonary disease with (acute) lower respiratory infection; I50.32 Chronic diastolic (congestive) heart failure; G20 Parkinson's disease; I48.20 Chronic atrial fibrillation, unspecified; S70.11XD Contusion of right thigh, subsequent encounter; D63.8 Anemia in other chronic diseases classified elsewhere; E78.5 Hyperlipidemia, unspecified; I11.0 Hypertensive heart disease with heart failure; M19.90 Unspecified osteoarthritis, unspecified site; W19.XXXD Unspecified fall, subsequent encounter; E86.1 Hypovolemia; F32.A Depression, unspecified; H40.9 Unspecified glaucoma; I73.9 Peripheral vascular disease, unspecified; K56.41 Fecal impaction; R29.6 Repeated falls; R26.81 Unsteadiness on feet; Z66 Do not resuscitate; Z79.01 Long term (current) use of anticoagulants; Z87.891 Personal history of nicotine dependence; Z91.81 History of falling; K21.9 Gastro-esophageal reflux disease without esophagitis; Z87.440 Personal history of urinary (tract) infections; Z88.5 Allergy status to narcotic agent; Z88.8 Allergy status to other drugs, medicaments and biological substances; G31.83 Neurocognitive disorder with Lewy bodies
CPT/HCPCS: 36415; 36600; 71045; 74018; 83735; 84100; 85025; 86140; 90732; 94640; 94664; 97535-GO-CO; A4663; A6209; J2650; J2920; J7512; J7614

== ENCOUNTER 2022-06-25 17:31 | Inpatient (IN) | payer MEDICARE ==
[~2022-06-25] VITALS: Ht 157.5 cm; Wt 54.4 kg
[~2022-06-25 17:31] MED LIST changes: -RIVA20TA PO
--- NOTE | 2022-06-25 18:30 | NUR ---
PT PLACED IN RM 3 APPEARS TO HAVE AMS; A/O X0.
[2022-06-25 18:56] LABS: HEMATOCRIT 36.4 % (31.2-41.9); MEAN CORPUSCULAR HEMOGLOBIN 31.4 uug (24.7-32.8); PLATELET COUNT (AUTO) 266 K/uL (179-408)
[2022-06-25 19:04] LABS: CARBON DIOXIDE 28 mmol/L (21-32); CHLORIDE 104 mmol/L (98-107); GLUCOSE 109 mg/dL (74-106); UREA NITROGEN, BLOOD 13 mg/dL (7-18)
[2022-06-25 19:09] LABS: ALANINE AMINOTRANSFERASE 21 U/L (14-59); ALKALINE PHOSPHATASE 67 U/L (50-136); ASPARTATE AMINOTRANSFERASE 25 U/L (15-37); BILIRUBIN,DIRECT 0.2 mg/dL (0.0-0.2); BILIRUBIN,TOTAL 0.7 mg/dL (0.2-1.0); TOTAL PROTEIN, SERUM 5.6 g/dL (6.4-8.2)
[2022-06-25 19:10] LABS: ACETAMINOPHEN < 2.0 ug/mL (10-30)
[2022-06-25 19:16] LABS: ETHANOL < 3 MG/DL (0-0)
--- NOTE | 2022-06-25 19:38 | NUR ---
SBAR GIVEN TO SOHA HOWE FOR ASSUMPTION OF CARE.
--- NOTE | 2022-06-25 19:50 | NUR ---
PATIENT BACK TO ROOM FROM CT
[2022-06-25] MEDS ORDERED: POTASSIUM CHLORIDE 20 MEQ TAB.PRT.SR PO ONE (20:30)
[2022-06-25] MEDS ORDERED: IV NORMAL SALINE 1000 ML BAG IV ONE (20:30)
[2022-06-25] MEDS ORDERED: POTASSIUM CHLORIDE 200 ML ONE (20:53)
[2022-06-25] MEDS: POTASSIUM CHLORIDE 50 ML IV SCH ×3 (20:57→22:59)
[2022-06-25 21:06] LABS: *BILIRUBIN,URIN NEGATIVE (NEGATIVE); *BLOOD, URINE NEGATIVE (NEGATIVE); *CLARITY,URINE CLEAR (CLEAR); *COLOR,URINE YELLOW (YELLOW); *KETONES,URINE NEGATIVE (NEGATIVE); *UROBILINOGEN,URINE 0.2 E.U./dl (NORMAL); LEUKOCYTE ESTERASE ,URINE NEGATIVE (NEGATIVE); NITRITE, URINE NEGATIVE (NEGATIVE)
[2022-06-25 21:09] LABS: UGLUCOSE 2+ (NEGATIVE)
[2022-06-25 21:11] LABS: *AMPHETAMINE, URINE NEGATIVE (NEGATIVE); *CANNABINOID, URINE NEGATIVE (NEGATIVE); *COCCAINE, URINE NEGATIVE (NEGATIVE); *OPIATE, URINE NEGATIVE (NEGATIVE); *PHENCYCLIDINE SCREEN,URINE NEGATIVE (NEGATIVE)
--- NOTE | 2022-06-25 22:00 | NUR ---
Dr. Schulz at bedside.
--- NOTE | 2022-06-25 22:42 | NUR ---
Called [facility] for panel call. Waiting for call back from Dr Cheng
[2022-06-25] MEDS ORDERED: OLANZAPINE 10 MG VIAL IM ONE (22:45)
--- NOTE | 2022-06-25 22:50 | NUR ---
Back from CT
--- NOTE | 2022-06-25 22:53 | NUR ---
Dr. Schulz on panel call with Dr. Landry. Patient accepted for admission to telemetry unit, Luly HIRSCH.
[2022-06-25 23:00] LABS: THYROID STIMULATING HORMONE 3.234 mIU/mL (0.358-3.740)
--- NOTE | 2022-06-25 23:30 | NUR ---
Dr Schulz verbally ordered NS 500ml
[2022-06-26] MEDS ORDERED: IV NORMAL SALINE 500 ML IV ONE
[2022-06-26] MEDS: POTASSIUM CHLORIDE 50 ML IV SCH (00:07)
--- NOTE | 2022-06-26 00:50 | NUR ---
Patient is now awake, agitated, trying to hit herself and the side rail. Dr Schulz made aware
[2022-06-26] MEDS ORDERED: diphenhydrAMINE 50 MG/1 ML VIAL ONE (00:57)
[2022-06-26] MEDS ORDERED: HALOPERIDOL LACTATE 5 MG/1 ML VIAL ONE (00:57)
--- NOTE | 2022-06-26 01:00 | NUR ---
Dr Schulz verbally ordered Haldol 5mg IV and benadryl 25mg IV
--- NOTE | 2022-06-26 01:30 | NUR ---
Patient is resting comfortably in bed with eyes closed
[2022-06-26] MEDS ORDERED: HALOPERIDOL LACTATE 5 MG/1 ML VIAL IV ONE (05:15)
[2022-06-26] MEDS ORDERED: diphenhydrAMINE 50 MG/1 ML VIAL IV ONE (05:15)
--- NOTE | 2022-06-26 07:08 | NUR ---
SBAR TO ANA HOWE
[2022-06-26] MEDS ORDERED: PIPERACILLIN SODIUM/TAZOBACTAM 3.375 G in IV DEXTROSE 5% 50 ML IV SCH (07:30)
[2022-06-26] MEDS ORDERED: ACETAMINOPHEN 650 MG SUPP.RECT RC PRN (07:30)
[2022-06-26] MEDS ORDERED: ONDANSETRON 4 MG/2 ML VIAL IV PRN (07:30)
[2022-06-26] MEDS ORDERED: BISACODYL 10 MG SUPP.RECT RC PRN (07:30)
[2022-06-26 07:52] LABS: HEMATOCRIT 29.2 % (31.2-41.9); MEAN CORPUSCULAR HEMOGLOBIN 32.2 uug (24.7-32.8); MEAN CORPUSCULAR VOLUME 96.2 fL (75.5-95.3); PLATELET COUNT (AUTO) 190 K/uL (179-408)
[2022-06-26] MEDS: PIPERACILLIN SODIUM/TAZOBACTAM 3.375 G in IV DEXTROSE 5% 100 ML IV SCH ×2 (08:08→16:34)
[2022-06-26] MEDS ORDERED: AMIODARONE HCL 200 MG TABLET PO ONE (09:00)
[2022-06-26] MEDS ORDERED: BRIMONIDINE-P 0.1% OPHTH DROP 5 ML DROPS EACHEYE SCH (09:00)
[2022-06-26] MEDS ORDERED: PANTOPRAZOLE SODIUM 40 MG VIAL ONE (09:09)
[2022-06-26] MEDS ORDERED: AMIODARONE HCL 200 MG TABLET ONE ×2 (09:09→21:39)
[2022-06-26] MEDS: PANTOPRAZOLE SODIUM 40 MG VIAL IV SCH (09:28)
[2022-06-26] MEDS: FLUTICASONE/VILANTEROL 1 EACH BLST.W.DEV INH SCH (09:28)
[2022-06-26] MEDS: BRIMONIDINE 0.2% OPHT DROP 10 ML BOTTLE EACHEYE SCH ×2 (09:28→17:07)
[2022-06-26 15:20] LABS: CARBON DIOXIDE 24 mmol/L (21-32); CHLORIDE 112 mmol/L (98-107); CREATININE 0.8 mg/dL (0.6-1.3); GLUCOSE 74 mg/dL (74-106); POTASSIUM 3.6 mmol/L (3.5-5.1); UREA NITROGEN, BLOOD 11 mg/dL (7-18)
[2022-06-26 15:36] LABS: ALANINE AMINOTRANSFERASE 36 U/L (14-59); ALKALINE PHOSPHATASE 52 U/L (50-136); ASPARTATE AMINOTRANSFERASE 28 U/L (15-37); BILIRUBIN,TOTAL 0.5 mg/dL (0.2-1.0); MAGNESIUM 2.3 mg/dL (1.8-2.4); PHOSPHOROUS 3.4 mg/dL (2.5-4.9)
[2022-06-26 15:50] LABS: TOTAL PROTEIN, SERUM 4.6 g/dL (6.4-8.2)
[2022-06-26] MEDS: prednisoLONE ACET 1% OPHT DROP 5 ML BOTTLE RIGHTEYE SCH (16:34)
--- NOTE | 2022-06-26 18:15 | NUR ---
Pt received pureed dinner, fed by daughter. Well tolerated.
--- NOTE | 2022-06-26 18:24 | NUR ---
Changed pads x2.
--- NOTE | 2022-06-26 19:02 | NUR ---
Paged Dr. Palmer about pt's carbidopa-levadopa medication for Parkinsons. HARDWARE DESIGNER will arrive in 40 mins to talk to the pt's family.
--- NOTE | 2022-06-26 19:20 | NUR ---
Endorsed to Kayla HOWE.
--- NOTE | 2022-06-26 19:21 | NUR ---
ETIENNE maher Miryam RN
[2022-06-26] MEDS ORDERED: CARB1TAB12 PO (20:57)
--- NOTE | 2022-06-26 21:11 | NUR ---
Patient has been admitted was told by Mariella HOWE that there will soon be an avaliable bed. Waiting for call back for room number.
[2022-06-26] MEDS: CARBIDOPA PO SCH (21:22)
[2022-06-26] MEDS: LEVODOPA PO SCH (21:22)
[2022-06-26] MEDS: ENTACAPONE PO SCH (21:22)
[2022-06-26] MEDS ORDERED: RIVAROXABAN 15 MG TABLET ONE (21:38)
--- NOTE | 2022-06-26 21:40 | NUR ---
Called third floor to give report. Was told Nurse with a patient. Waiting for call back
[2022-06-26] MEDS: RIVAROXABAN 15 MG TABLET PO SCH (21:44)
[2022-06-26] MEDS: AMIODARONE HCL 200 MG TABLET PO SCH (21:44)
--- NOTE | 2022-06-26 22:07 | NUR ---
Called third floor to give report. Nurse unable to take report. Waiting for call back.
--- NOTE | 2022-06-26 22:25 | NUR ---
Blas covarrubias in [facility] - 06/26/22 at 2226 by EDNA Asked CHANNING Tripp for patient rollover.
--- NOTE | 2022-06-26 22:25 | NUR ---
SBAR given to Adriane HOWE.
--- NOTE | 2022-06-26 22:26 | NUR ---
Asked ER Laundry Manager for patient rollover. Will take patient to TELE once paper work is ready.
--- NOTE | 2022-06-26 23:06 | NUR ---
Pt. admitted to TELE ROOM 309 , under care of Dr. Cheng. Belongs List completed Adriane HOWE aware of patients arrival.
--- NOTE | 2022-06-26 23:45 | NUR ---
Admitted 81 yr old female from home via gurney assisted by 2 RNs with Dx AMS, ?Sepsis under Dr. Cheng. AAOx2. Able to answer person and place but mostly confused. SR on tele. On O2 3LPM sating at 95%. Bedbound. Skin tears on right arm, hand, left elbow and left hand. Bruises on both arms, right hip and mons pubis. Redness on gluteal fold noted. Photos on chart. Cleansed wounds with NS and changed dressing. Padded side rails. IV on L FA 20 g intact and patent. Routine admission done. Safety precautions observed. Will continue to monitor. All needs attended.
[2022-06-27] MEDS: POTASSIUM CHLORIDE 20 MEQ in IV D5/ 0.9% NACL 1,000 ML IV PRN (00:35)
[2022-06-27 00:36] VITALS: BP 145/74
[2022-06-27] MEDS: MORPHINE SULFATE 2 MG/1 ML DISP.SYRIN IV PRN (00:41)
[2022-06-27] MEDS ORDERED: PIPERACILLIN SODIUM/TAZO 3.375 GM VIAL ONE (01:21)
[2022-06-27] MEDS: PIPERACILLIN SODIUM/TAZOBACTAM 3.375 G in IV DEXTROSE 5% 100 ML IV SCH ×3 (02:06→16:28)
[2022-06-27 04:00] VITALS: BP 146/62
[2022-06-27 06:57] LABS: HEMATOCRIT 31.9 % (31.2-41.9); MEAN CORPUSCULAR HEMOGLOBIN 31.7 uug (24.7-32.8); MEAN CORPUSCULAR VOLUME 96.4 fL (75.5-95.3); PLATELET COUNT (AUTO) 189 K/uL (179-408)
[2022-06-27 07:17] LABS: CREATININE 0.7 mg/dL (0.6-1.3); MAGNESIUM 2.3 mg/dL (1.8-2.4); PHOSPHOROUS 2.9 mg/dL (2.5-4.9)
[2022-06-27] MEDS: ENTACAPONE PO SCH ×4 (08:00→16:30)
[2022-06-27] MEDS: CARBIDOPA PO SCH ×4 (08:00→16:30)
[2022-06-27] MEDS: LEVODOPA PO SCH ×4 (08:00→16:30)
--- NOTE | 2022-06-27 08:00 | NUR ---
PATIENT RESTING COMFORTABLY WITH EYES CLOSED, RESPOND TO BOTH VERBAL AND TACTILE STIMULI NO SS OF PAIN OR DISTRESS. SR/ST ON MONITOR
[2022-06-27] MEDS: FLUTICASONE/VILANTEROL 1 EACH BLST.W.DEV INH SCH (09:00)
--- NOTE | 2022-06-27 09:00 | NUR ---
TEMP 101.1 CODLING MEASURERS DONE, HOSPITALIST NOTIFIED WITH ORDERS
[2022-06-27] MEDS: PANTOPRAZOLE SODIUM 40 MG VIAL IV SCH (09:29)
[2022-06-27] MEDS: AMIODARONE HCL 200 MG TABLET PO SCH (09:30)
--- NOTE | 2022-06-27 10:00 | NUR ---
SEEN BY DR MARTINEZ FOR CONSULT SEE NOTES
[2022-06-27 10:10] LABS: POTASSIUM 2.7 mmol/L (3.5-5.1)
[2022-06-27] MEDS: BRIMONIDINE 0.2% OPHT DROP 10 ML BOTTLE EACHEYE SCH ×2 (10:12→16:30)
[2022-06-27 10:30] LABS: *BILIRUBIN,URIN NEGATIVE (NEGATIVE); *CLARITY,URINE CLEAR (CLEAR); *COLOR,URINE YELLOW (YELLOW); *KETONES,URINE 2+ (NEGATIVE); *UROBILINOGEN,URINE 0.2 E.U./dl (NORMAL); LEUKOCYTE ESTERASE ,URINE 1+ (NEGATIVE); NITRITE, URINE NEGATIVE (NEGATIVE); PH,URINE 7.5 (5.0-8.0); UGLUCOSE 2+ (NEGATIVE)
[2022-06-27 10:40] LABS: *BLOOD, URINE TRACE (NEGATIVE)
--- NOTE | 2022-06-27 11:30 | NUR ---
SEEN BY HOSPITALIST FOR FOLLOW UP SEE NOTES
[2022-06-27 11:44] VITALS: BP 123/57
[2022-06-27] MEDS ORDERED: VANCOMYCIN IV 1,000 MG in IV DEXTROSE 5% 250 ML IV ONE (12:00)
[2022-06-27] MEDS: POTASSIUM CHLORIDE 50 ML IV SCH ×4 (12:05→16:26)
[2022-06-27 12:53] LABS: BACTERIA,URINE MODERATE /HPF (NONE SEEN); RBC,URINE 0-3 /HPF (0-3); SQUAMOUS EPITHELIAL CELL,UR FEW /HPF (NONE SEEN); WBC,URINE TNTC /HPF (0-3)
--- NOTE | 2022-06-27 13:11 | NUR ---
SEEN BY PT SEE NOTES
[2022-06-27] MEDS: prednisoLONE ACET 1% OPHT DROP 5 ML BOTTLE RIGHTEYE SCH (13:15)
[2022-06-27 16:00] VITALS: BP 124/56
[2022-06-27] MEDS: RIVAROXABAN 15 MG TABLET PO SCH (16:40)
[2022-06-27 20:00] VITALS: BP 113/51
--- NOTE | 2022-06-27 21:40 | NUR ---
CONVERTED FROM SR TO AFLUTTER. MD AWARE. NO NEW ORDERS RECEIVED. WILL CONTINUE TO MONITOR.
[2022-06-28] VITALS: BP 156/85
[2022-06-28] MEDS: PIPERACILLIN SODIUM/TAZOBACTAM 3.375 G in IV DEXTROSE 5% 100 ML IV SCH ×2 (00:23→08:20)
[2022-06-28] MEDS: AMIODARONE HCL 200 MG TABLET PO SCH ×3 (00:25→20:58)
[2022-06-28] MEDS: ENTACAPONE PO SCH ×5 (00:26→20:55)
[2022-06-28] MEDS: LEVODOPA PO SCH ×5 (00:26→20:55)
[2022-06-28] MEDS: CARBIDOPA PO SCH ×5 (00:26→20:55)
[2022-06-28 04:00] VITALS: BP 137/69
[2022-06-28] MEDS: VANCOMYCIN IV 750 MG in IV DEXTROSE 5% 250 ML IV SCH ×3 (05:39→09:33)
--- NOTE | 2022-06-28 06:12 | NUR ---
NO PATENT IV LINE. PT IS A HARDSTICK. ALL IV MEDICATIONS HELD OF THIS TIME. NEED MIDLINE INSERTION. NURSING SALES ASSOCIATE INFORMED.
[2022-06-28 06:33] LABS: MEAN CORPUSCULAR HEMOGLOBIN 32.2 uug (24.7-32.8); MEAN CORPUSCULAR VOLUME 96.9 fL (75.5-95.3); PLATELET COUNT (AUTO) 183 K/uL (179-408)
[2022-06-28 06:52] LABS: CREATININE 0.7 mg/dL (0.6-1.3); MAGNESIUM 2.2 mg/dL (1.8-2.4); PHOSPHOROUS 2.3 mg/dL (2.5-4.9); POTASSIUM 3.2 mmol/L (3.5-5.1)
[2022-06-28 08:00] VITALS: BP 95/60
[2022-06-28] MEDS: POTASSIUM CHLORIDE 20 MEQ in IV D5/ 0.9% NACL 1,000 ML IV PRN (08:21)
[2022-06-28] MEDS ORDERED: POTASSIUM CHLORIDE 20 MEQ TAB.PRT.SR PO ONE (09:15)
[2022-06-28] MEDS: FLUTICASONE/VILANTEROL 1 EACH BLST.W.DEV INH SCH (09:32)
[2022-06-28] MEDS: PANTOPRAZOLE SODIUM 40 MG VIAL IV SCH (09:32)
[2022-06-28] MEDS: BRIMONIDINE 0.2% OPHT DROP 10 ML BOTTLE EACHEYE SCH ×2 (09:33→17:52)
[2022-06-28] MEDS: prednisoLONE ACET 1% OPHT DROP 5 ML BOTTLE RIGHTEYE SCH (09:34)
--- NOTE | 2022-06-28 11:00 | NUR ---
PT WAS SEEN BY HOSPITALIST. FAMILY AT BEDSIDE. NO NEW ORDER AT THIS TIME.
--- NOTE | 2022-06-28 11:53 | NUR ---
W2OUND CARE CONSULT: PT PRESENTS WITH RASH TO PERINEUM, INNER BUTTOCKS, MULTIPLE AREAS OF SKIN DISCOLORATION AND SKIN TEARS TO RT AND LEFT UPPER EXTREMITIES WITH OPEN AREA TO RT ELBOW, ALL PRESENT ON ADMISSION. PT STATES FELL AT HOME PRIOR TO ADMISSION. DR DE LOS SANTOS CALLED FOR SURGICAL CONSULT. RECOMMENDATIONS MADE FOR SKIN PROTECTION. DISCUSSED WITH NURSING STAFF. MD IN AGREEMENT WITH PLAN OF CARE.
--- NOTE | 2022-06-28 11:58 | NUR ---
pt was seen by wound care nurse. new wound treatment was ordered.
[2022-06-28] MEDS ORDERED: REMEDY ESSENTIAL ZINC PASTE 113 GM TOP PRN (12:30)
[2022-06-28] MEDS: PIPERACILLIN SODIUM/TAZOBACTAM 3.375 G in IV DEXTROSE 5% 50 ML IV SCH ×2 (13:03→20:52)
[2022-06-28 15:11] VITALS: BP 122/56
--- NOTE | 2022-06-28 16:01 | NUR ---
Clinical Social Work Note: SW made an APS report Intake ID [id number] for suspicion of self-neglect and placed a copy in the patients chart.
[2022-06-28] MEDS ORDERED: NEUTRA PHOS PACKET PO ONE (16:30)
[2022-06-28] MEDS: CLOTRIMAZOLE 1% CREAM 30 GM TUBE TOP SCH (17:52)
[2022-06-28] MEDS: RIVAROXABAN 15 MG TABLET PO SCH (17:52)
[2022-06-28 19:48] VITALS: BP 97/42
[2022-06-28 19:54] VITALS: BP 97/42
[2022-06-28] MEDS: REMEDY ESSENTIAL ZINC PASTE 113 GM TOP SCH (20:53)
[2022-06-29 00:06] VITALS: BP 105/45
[2022-06-29] MEDS: PIPERACILLIN SODIUM/TAZOBACTAM 3.375 G in IV DEXTROSE 5% 50 ML IV SCH ×4 (02:14→20:30)
[2022-06-29] MEDS: VANCOMYCIN IV 750 MG in IV DEXTROSE 5% 250 ML IV SCH ×2 (03:53→21:35)
[2022-06-29 04:49] VITALS: BP 144/70
[2022-06-29] MEDS: PANTOPRAZOLE SODIUM 40 MG TABLET.DR PO SCH (06:19)
[2022-06-29 06:56] LABS: HEMATOCRIT 29.2 % (31.2-41.9); MEAN CORPUSCULAR HEMOGLOBIN 32.1 uug (24.7-32.8); MEAN CORPUSCULAR VOLUME 96.9 fL (75.5-95.3); PLATELET COUNT (AUTO) 178 K/uL (179-408)
[2022-06-29] MEDS ORDERED: ALBUTEROL SULFATE 2.5 MG/ 0.5 ML NEBU NEB PRN (08:00)
[2022-06-29] MEDS ORDERED: IPRATROPIUM BROMIDE 0.5 MG/2.5 ML NEBU NEB PRN (08:00)
[2022-06-29 08:02] LABS: CREATININE 0.8 mg/dL (0.6-1.3); MAGNESIUM 2.1 mg/dL (1.8-2.4); PHOSPHOROUS 2.9 mg/dL (2.5-4.9); POTASSIUM 3.7 mmol/L (3.5-5.1)
--- NOTE | 2022-06-29 08:26 | NUR ---
After I got a report and went to check on the patient, she said she was SOB and had hard time breathing. Delfina Estrella was notified and ordered a breathing treatment for the patient. After the treatment, the patient said she "felt so much better now." Now she is having breakfast.
[2022-06-29] MEDS: FLUTICASONE/VILANTEROL 1 EACH BLST.W.DEV INH SCH (09:08)
[2022-06-29] MEDS: ENTACAPONE PO SCH ×4 (09:08→20:22)
[2022-06-29] MEDS: CARBIDOPA PO SCH ×4 (09:08→20:22)
[2022-06-29] MEDS: LEVODOPA PO SCH ×4 (09:08→20:22)
[2022-06-29] MEDS: BRIMONIDINE 0.2% OPHT DROP 10 ML BOTTLE EACHEYE SCH ×2 (09:09→17:37)
[2022-06-29] MEDS: prednisoLONE ACET 1% OPHT DROP 5 ML BOTTLE RIGHTEYE SCH (09:09)
[2022-06-29] MEDS: AMIODARONE HCL 200 MG TABLET PO SCH ×2 (09:10→20:22)
[2022-06-29] MEDS: REMEDY ESSENTIAL ZINC PASTE 113 GM TOP SCH ×2 (09:11→20:22)
[2022-06-29] MEDS: CLOTRIMAZOLE 1% CREAM 30 GM TUBE TOP SCH ×2 (09:11→17:37)
[2022-06-29 11:53] VITALS: BP 106/48
[2022-06-29] MEDS: POTASSIUM CHLORIDE 20 MEQ in IV D5/ 0.9% NACL 1,000 ML IV PRN (13:05)
[2022-06-29 15:39] VITALS: BP 112/48
[2022-06-29] MEDS: RIVAROXABAN 15 MG TABLET PO SCH (18:51)
[2022-06-29 20:20] VITALS: BP 98/46
[2022-06-30 00:03] VITALS: BP 112/70
[2022-06-30] MEDS: PIPERACILLIN SODIUM/TAZOBACTAM 3.375 G in IV DEXTROSE 5% 50 ML IV SCH ×4 (01:44→20:57)
[2022-06-30 04:07] VITALS: BP 104/77
[2022-06-30] MEDS: PANTOPRAZOLE SODIUM 40 MG TABLET.DR PO SCH (06:21)
[2022-06-30 08:00] VITALS: BP 109/54
[2022-06-30] MEDS: ENTACAPONE PO SCH ×4 (08:16→20:57)
[2022-06-30] MEDS: CARBIDOPA PO SCH ×4 (08:16→20:57)
[2022-06-30] MEDS: LEVODOPA PO SCH ×4 (08:16→20:57)
[2022-06-30] MEDS: AMIODARONE HCL 200 MG TABLET PO SCH ×2 (08:18→20:59)
[2022-06-30] MEDS: BRIMONIDINE 0.2% OPHT DROP 10 ML BOTTLE EACHEYE SCH ×2 (08:22→17:42)
[2022-06-30] MEDS: FLUTICASONE/VILANTEROL 1 EACH BLST.W.DEV INH SCH (08:23)
[2022-06-30] MEDS: CLOTRIMAZOLE 1% CREAM 30 GM TUBE TOP SCH ×2 (08:23→17:40)
[2022-06-30] MEDS: prednisoLONE ACET 1% OPHT DROP 5 ML BOTTLE RIGHTEYE SCH (08:23)
[2022-06-30] MEDS: REMEDY ESSENTIAL ZINC PASTE 113 GM TOP SCH ×2 (08:23→20:59)
[2022-06-30] MEDS: FUROSEMIDE 20 MG TABLET PO SCH (11:12)
[2022-06-30 12:00] VITALS: BP 118/56
[2022-06-30 15:28] LABS: CARBON DIOXIDE 27 mmol/L (21-32); CHLORIDE 107 mmol/L (98-107); CREATININE 0.7 mg/dL (0.6-1.3); GLUCOSE 97 mg/dL (74-106); POTASSIUM 3.5 mmol/L (3.5-5.1); UREA NITROGEN, BLOOD 17 mg/dL (7-18); VANCOMYCIN,TROUGH 9.9 ug/mL (12.0-20.0)
[2022-06-30 16:00] VITALS: BP 101/58
[2022-06-30] MEDS: VANCOMYCIN IV 750 MG in IV DEXTROSE 5% 250 ML IV SCH (16:19)
[2022-06-30] MEDS: NEOMY/BACITRAC/POLYMI OINT 28.35 GM TUBE TOP SCH (17:40)
[2022-06-30] MEDS: RIVAROXABAN 15 MG TABLET PO SCH (17:42)
[2022-06-30] MEDS: POTASSIUM CHLORIDE 20 MEQ in IV D5/ 0.9% NACL 1,000 ML IV PRN (18:03)
--- NOTE | 2022-06-30 19:30 | NUR ---
RECEIVED REPORT FROM AM NURSE CHECKED PT SHE ALERT AND ORIENTED X3 DENIES PAIN HAS IVF OF D51/2 WITH 20KCL INFUSING AT 40ML/HR NO SIGNS OF INFILTRATION NOTED. PT DENIES PAIN NO SIGNS OF RESPIRATORY DISTRESS NOTED. PT STATED"I WILL BE LEAVING TOMORROW."
[2022-06-30 20:25] VITALS: BP 90/67
[2022-07-01] VITALS: BP 101/64
[2022-07-01] MEDS: PIPERACILLIN SODIUM/TAZOBACTAM 3.375 G in IV DEXTROSE 5% 50 ML IV SCH ×2 (02:15→07:07)
[2022-07-01 04:00] VITALS: BP 156/63
[2022-07-01 05:31] VITALS: BP 105/60
--- NOTE | 2022-07-01 05:56 | NUR ---
SHIFT NOTE: PT GIVEN MEDICATION ORDERED NO SIGNS OFADVERSE REACTION NOTED. PT ASSESSSED EVERY 2 HOUR FOR FALLS AND SAFETY NONE NOTED. WILL ENDORSE TO AM NURSE.
[2022-07-01] MEDS: PANTOPRAZOLE SODIUM 40 MG TABLET.DR PO SCH (07:07)
[2022-07-01] MEDS: VANCOMYCIN IV 750 MG in IV DEXTROSE 5% 250 ML IV SCH (07:07)
[2022-07-01 07:25] LABS: HEMATOCRIT 28.7 % (31.2-41.9); MEAN CORPUSCULAR HEMOGLOBIN 32.2 uug (24.7-32.8); MEAN CORPUSCULAR VOLUME 95.1 fL (75.5-95.3); PLATELET COUNT (AUTO) 186 K/uL (179-408)
[2022-07-01 07:34] LABS: CREATININE 0.7 mg/dL (0.6-1.3); PHOSPHOROUS 3.1 mg/dL (2.5-4.9); POTASSIUM 3.1 mmol/L (3.5-5.1)
[2022-07-01] MEDS: FUROSEMIDE 20 MG TABLET PO SCH (08:44)
[2022-07-01] MEDS: FLUTICASONE/VILANTEROL 1 EACH BLST.W.DEV INH SCH (08:46)
[2022-07-01] MEDS: AMIODARONE HCL 200 MG TABLET PO SCH ×2 (08:46→21:27)
[2022-07-01] MEDS: LEVODOPA PO SCH ×4 (08:47→21:27)
[2022-07-01] MEDS: CARBIDOPA PO SCH ×4 (08:47→21:27)
[2022-07-01] MEDS: ENTACAPONE PO SCH ×4 (08:47→21:27)
[2022-07-01] MEDS: BRIMONIDINE 0.2% OPHT DROP 10 ML BOTTLE EACHEYE SCH ×2 (08:48→17:10)
[2022-07-01] MEDS: prednisoLONE ACET 1% OPHT DROP 5 ML BOTTLE RIGHTEYE SCH (08:48)
[2022-07-01] MEDS: NEOMY/BACITRAC/POLYMI OINT 28.35 GM TUBE TOP SCH (08:49)
[2022-07-01] MEDS: REMEDY ESSENTIAL ZINC PASTE 113 GM TOP SCH ×2 (08:49→21:28)
[2022-07-01] MEDS: CLOTRIMAZOLE 1% CREAM 30 GM TUBE TOP SCH ×2 (08:49→17:09)
--- NOTE | 2022-07-01 09:00 | NUR ---
PATIENT IS AWAKE ALERT AND ORIENTED DENIES PAIN OR DISCOMFORTS AT THIS TIME SEEN BY THE PHYSICAL THERAPY FOR EVALUATION AND ABLE TO WALK WITH THE FRONT WHEEL WALKER WITH FAIR ENDURANCE DENIES PAIN OR DISCOMFORTS IVF IN PROGRESS ORDERED MADE COMFORTABLE WILL CONTINUE TO OBSERVE.
[2022-07-01] MEDS ORDERED: POTASSIUM CHLORIDE 20 MEQ POWDER PACKET PO ONE (10:00)
--- NOTE | 2022-07-01 10:13 | NUR ---
POTASSIUM LEVEL IS 3.4 WITH NEW REPLACEMENT ORDER AND NOTED.
[2022-07-01 11:57] VITALS: BP 126/55
[2022-07-01] MEDS ORDERED: CEFTRIAXONE 2 G VIAL IM SCH (13:15)
--- NOTE | 2022-07-01 15:38 | NUR ---
NEW ORDERS FOR RAPID COVID AND INFLUENZA RECEIVED PATIENT SWABBED AND SPECIMENS SENT TO THE LAB ORDERED
[2022-07-01] MEDS: CEFTRIAXONE 2 G in IV DEXTROSE 5% 100 ML IV SCH (15:46)
[2022-07-01 15:54] VITALS: BP 128/53
[2022-07-01] MEDS: RIVAROXABAN 15 MG TABLET PO SCH (17:08)
--- NOTE | 2022-07-01 17:40 | NUR ---
RECEIVED A CALL FROM THE LAB PATIENT IS COVID POSITIVE CALLED AND LEFT A MESSAGE FOR MALAIKA SAHNI WITH NO NEW ORDERS AT THIS TIME.
--- NOTE | 2022-07-01 18:15 | NUR ---
CALL RECEIVED FROM MALAIKA SAHNI STATED TO PLACE PATIENT ON COVID ISOLATION PATIENT AND HER DAUGHTER AT THE BEDSIDE NOTIFIED.
[2022-07-01 20:00] VITALS: BP 164/101
[2022-07-02] MEDS: MORPHINE SULFATE 2 MG/1 ML DISP.SYRIN IV PRN (03:58)
[2022-07-02 04:00] VITALS: BP 100/58
[2022-07-02] MEDS: PANTOPRAZOLE SODIUM 40 MG TABLET.DR PO SCH (06:27)
[2022-07-02 06:56] LABS: HEMATOCRIT 31.8 % (31.2-41.9); MEAN CORPUSCULAR HEMOGLOBIN 32.1 uug (24.7-32.8); MEAN CORPUSCULAR VOLUME 95.1 fL (75.5-95.3); PLATELET COUNT (AUTO) 204 K/uL (179-408)
[2022-07-02 07:09] LABS: CARBON DIOXIDE 28 mmol/L (21-32); CHLORIDE 105 mmol/L (98-107); CREATININE 0.7 mg/dL (0.6-1.3); GLUCOSE 103 mg/dL (74-106); PHOSPHOROUS 2.9 mg/dL (2.5-4.9); POTASSIUM 3.4 mmol/L (3.5-5.1); UREA NITROGEN, BLOOD 6 mg/dL (7-18)
[2022-07-02] MEDS: FUROSEMIDE 20 MG TABLET PO SCH (09:43)
[2022-07-02] MEDS: AMIODARONE HCL 200 MG TABLET PO SCH (09:44)
[2022-07-02] MEDS: CARBIDOPA PO SCH ×5 (09:44→22:17)
[2022-07-02] MEDS: ENTACAPONE PO SCH ×5 (09:44→22:17)
[2022-07-02] MEDS: LEVODOPA PO SCH ×5 (09:44→22:17)
[2022-07-02] MEDS: FLUTICASONE/VILANTEROL 1 EACH BLST.W.DEV INH SCH (09:44)
[2022-07-02] MEDS: BRIMONIDINE 0.2% OPHT DROP 10 ML BOTTLE EACHEYE SCH ×2 (09:45→18:27)
[2022-07-02] MEDS: prednisoLONE ACET 1% OPHT DROP 5 ML BOTTLE RIGHTEYE SCH (09:45)
[2022-07-02] MEDS: CLOTRIMAZOLE 1% CREAM 30 GM TUBE TOP SCH ×2 (09:49→18:29)
[2022-07-02] MEDS: REMEDY ESSENTIAL ZINC PASTE 113 GM TOP SCH (09:49)
[2022-07-02] MEDS: NEOMY/BACITRAC/POLYMI OINT 28.35 GM TUBE TOP SCH (09:51)
[2022-07-02] MEDS ORDERED: POTASSIUM CHLORIDE 20 MEQ POWDER PACKET PO ONE (10:30)
[2022-07-02 11:36] VITALS: BP 108/90
[2022-07-02] MEDS ORDERED: FURO20TA4 PO (15:42)
[2022-07-02] MEDS ORDERED: AMIO200T6 PO (15:42)
[2022-07-02] MEDS ORDERED: CEFI400C4 PO (15:42)
[2022-07-02 16:00] VITALS: BP 94/71
[2022-07-02] MEDS: CEFTRIAXONE 2 G in IV DEXTROSE 5% 100 ML IV SCH (18:20)
[2022-07-02] MEDS: RIVAROXABAN 15 MG TABLET PO SCH (18:28)
--- NOTE | 2022-07-02 19:30 | NUR ---
RECEIVED PATIENT IN BED, ON DROPLET PRECAUTION. NO COUGHING NO CONGESTION NOTED, NO COMPLAIN OF PAIN, AFEBRILE NO COMPLAIN OF PAIN, CONT TO MONITOR.
[2022-07-02 20:00] VITALS: BP 107/49
--- NOTE | 2022-07-02 21:13 | NUR ---
dc to [facility] cancelled, ambulance too late and facility not staffed for admission this late, colten mckeon made aware of above situation.
[2022-07-03 04:00] VITALS: BP 161/70
[2022-07-03] MEDS: REMEDY ESSENTIAL ZINC PASTE 113 GM TOP SCH ×2 (04:32→09:08)
--- NOTE | 2022-07-03 05:49 | NUR ---
PATIENT IN ROOM WATCHING TV NO SOB NO CHEST CONGESTION NO FEVER, REMAINS DROPLET PRECAUTION, KEPT CLEAN DRY AND COMFORTABLE, CALL WITHIN REACH.
[2022-07-03] MEDS: PANTOPRAZOLE SODIUM 40 MG TABLET.DR PO SCH (06:30)
[2022-07-03 06:34] LABS: MEAN CORPUSCULAR HEMOGLOBIN 32.5 uug (24.7-32.8); MEAN CORPUSCULAR VOLUME 95.6 fL (75.5-95.3); PLATELET COUNT (AUTO) 197 K/uL (179-408)
[2022-07-03 07:06] LABS: CREATININE 0.7 mg/dL (0.6-1.3); MAGNESIUM 2.2 mg/dL (1.8-2.4); PHOSPHOROUS 3.5 mg/dL (2.5-4.9); POTASSIUM 3.4 mmol/L (3.5-5.1)
[2022-07-03] MEDS: ENTACAPONE PO SCH (08:51)
[2022-07-03] MEDS: CARBIDOPA PO SCH (08:51)
[2022-07-03] MEDS: LEVODOPA PO SCH (08:51)
[2022-07-03] MEDS: FUROSEMIDE 20 MG TABLET PO SCH (08:52)
[2022-07-03] MEDS: FLUTICASONE/VILANTEROL 1 EACH BLST.W.DEV INH SCH (08:52)
[2022-07-03] MEDS: prednisoLONE ACET 1% OPHT DROP 5 ML BOTTLE RIGHTEYE SCH (08:52)
[2022-07-03] MEDS: BRIMONIDINE 0.2% OPHT DROP 10 ML BOTTLE EACHEYE SCH (08:52)
[2022-07-03] MEDS ORDERED: AMIODARONE HCL 200 MG TABLET PO SCH (09:00)
[2022-07-03] MEDS: CLOTRIMAZOLE 1% CREAM 30 GM TUBE TOP SCH (09:08)
[2022-07-03] MEDS: NEOMY/BACITRAC/POLYMI OINT 28.35 GM TUBE TOP SCH (09:09)
[2022-07-03] MEDS ORDERED: POTASSIUM CHLORIDE 20 MEQ TAB.PRT.SR PO ONE (10:00)
--- NOTE | 2022-07-03 11:00 | NUR ---
PATIENT IS NAPPING, NO COMPLAINS OF PAIN OR DISCOMFORT. REMAINS ON DROPLET PRECAUTIONS.
[2022-07-03 11:52] VITALS: BP 125/50
--- NOTE | 2022-07-03 12:25 | NUR ---
PATIENT IS BEING PICKED UP BY AMBULANCE TO TAKE HER TO [facility] WHERE SHE WILL MET HER AND DAUGHTER BETH GUNN. PATIENT HAS NO COMPLAINS OF PAIN
== END 2022-07-03 12:30 | DRG 871 ==
LOC: ER 17:34 → TRANSITION 23:00 → TELE3 06-26 22:49 → MEDSURG3 07-01 09:50
PROVIDERS: ADMIT Registered Nurse; ATTEND Nurse Practitioner Acute Care
PROC: 05H533Z Insertion of Infusion Device into Right Subclavian Vein, Percutaneous Approach (ICD-10-PCS; principal; 2022-06-28)
PROC: B546ZZA Ultrasonography of Right Subclavian Vein, Guidance (ICD-10-PCS; 2022-06-28)
DX: A41.9 Sepsis, unspecified organism (principal); G93.41 Metabolic encephalopathy; U07.1 COVID-19; N39.0 Urinary tract infection, site not specified; F33.3 Major depressive disorder, recurrent, severe with psychotic symptoms; E87.20 Acidosis, unspecified; F02.82 Dementia in other diseases classified elsewhere, unspecified severity, with psychotic disturbance; E86.0 Dehydration; E78.5 Hyperlipidemia, unspecified; I50.9 Heart failure, unspecified; I48.91 Unspecified atrial fibrillation; Z79.01 Long term (current) use of anticoagulants; Z87.440 Personal history of urinary (tract) infections; Z96.651 Presence of right artificial knee joint; Z79.899 Other long term (current) drug therapy; Z87.891 Personal history of nicotine dependence; E87.6 Hypokalemia; I11.0 Hypertensive heart disease with heart failure; J44.9 Chronic obstructive pulmonary disease, unspecified; G20 Parkinson's disease; G31.83 Neurocognitive disorder with Lewy bodies; M19.90 Unspecified osteoarthritis, unspecified site; H40.9 Unspecified glaucoma; B96.89 Other specified bacterial agents as the cause of diseases classified elsewhere; S41.112A Laceration without foreign body of left upper arm, initial encounter; S41.111A Laceration without foreign body of right upper arm, initial encounter; W19.XXXA Unspecified fall, initial encounter; Y93.9 Activity, unspecified; Y92.009 Unspecified place in unspecified non-institutional (private) residence as the place of occurrence of the external cause; S51.001A Unspecified open wound of right elbow, initial encounter; R53.1 Weakness; F10.21 Alcohol dependence, in remission; M50.323 Other cervical disc degeneration at C6-C7 level
CPT/HCPCS: 36415; 70450; 71045; 72125; 83605; 83735; 84100; 84132; 84443; 84484; 85025; 86140; 87040; 87400; 93005; 94640; 97161; A4663; A6209; C1758; C9113; G0378; G0480; J0696; J1200; J1630; J2270; J2358; J2543; J2650; J3370; J3480; J3590; J7040; J7042; J7050